=== PATIENT | female | born 1940 | race Caucasian/White ===

== ENCOUNTER → 2016-09-10 | Outpatient (CLI) | payer MEDICARE ==
--- NOTE | 2016-09-10 15:11 | MR ---
MR brain without contrast HISTORY: Memory loss Multiplanar multisequence imaging through the brain No comparisons There is cortical atrophy. Periventricular white matter shows patchy and confluent increased signal o n inversion recovery and T2-weighted sequences. No hemorrhage or hydrocephalus. Cerebellopontine angl es, corpus callosum, pituitary, cervical medullary junction are within normal limits. There are brit l vascular flow voids. The orbits show a symmetric appearance. IMPRESSION: Age-related atrophy and probable chronic small vessel ischemia.
== END | disposition home or self-care (01) ==
LOC: RADMRIMAIN 13:47
PROVIDERS: ATTEND Psychiatry & Neurology Neurology
DX: G31.1 Senile degeneration of brain, not elsewhere classified (principal)
CPT/HCPCS: 70551

== ENCOUNTER → 2020-09-28 | Outpatient (CLI) | payer MEDICARE ==
--- NOTE | 2020-09-28 14:59 | MR ---
EXAMINATION TYPE: MR brain wo con DATE OF EXAM: 09/28/2020 COMPARISON: 09/10/2016 HISTORY: 79-year-old female R41.3 Memory loss, dementia, mild cognitive impairment. F03.91. G31.84 TECHNIQUE: Multiplanar, multisequence images of the brain and brainstem were acquired without IV con trast. Diffusion weighted imaging is performed. FINDINGS: No evidence for acute infarction, hemorrhage, mass, mass effect, midline shift, herniation, effacemen t of basal cisterns, or extra-axial fluid collection. Central cerebral volume loss with mild ventriculomegaly, Edouard's ratio calculated at 0.35 (versus 0.29 , previously). Major intracranial flow voids are intact. T2/FLAIR weighted sequences show increasing right lower matter change, not conflict in the periventri cular and deep white matter regions, moderate to severe burden. Midline structures demonstrate normal morphology. The craniocervical junction is normal. Mild mucosal thickening ethmoid air cells. Globes are intact. IMPRESSION: 1. Moderate generalized atrophy, especially central cerebral atrophy with secondary prominence of the ventricular system. The volume loss has progressed from 2017. 2. Now moderate to severe burden of chronic small vessel ischemic disease, also progressed from 2017. 3. No acute intracranial abnormality seen.
== END | disposition home or self-care (01) ==
LOC: RADMRIMAIN 12:05
PROVIDERS: ATTEND Psychiatry & Neurology Neurology
DX: G31.9 Degenerative disease of nervous system, unspecified (principal); F03.91 Unspecified dementia, unspecified severity, with behavioral disturbance; R41.3 Other amnesia
CPT/HCPCS: 70551

== ENCOUNTER 2020-12-02 17:23 | Inpatient (IN) | payer MEDICARE ==
[2020-12-02] MEDS ORDERED: SODIUM CHLORIDE 0.9% 1,000 ML IV STA (18:06)
--- NOTE | 2020-12-02 18:29 | ED ---
General Adult HPI - General Chief complaint: Weakness Stated complaint: Fall, possible UTI Time Seen by Provider: 12/02/20 17:49 Source: patient, family, RN notes reviewed, old records reviewed Mode of arrival: ambulatory Limitations: no limitations - History of Present Illness Initial comments: Patient is an 80-year-old female with past medical history remarkable for dementia who is brought to emergency department for evaluation after being brought by family. I evaluated the patient when she was placed in a room. At baseline, patient is nonverbal but does follow commands. Family is concerned that she is slower to respond to commands they're concerned for possible infection. She is more tired than normal. Patient also appears to be weaker at home, she is having multiple falls, however she has not fallen and injured herself. She is always caused by her her family member. She is not as freely ambulatory as she normally is. They deny any fevers or cough at home. Denies any urinary complaints. Denies any nausea, vomiting, diarrhea. Denies any sick contacts. Patient was not vaccinated for COVID-19. They brought the patient to the emergency department for evaluation due to altered mental status and concern for infection. - Related Data Home Medications Medication Instructions Recorded Confirmed Ascorbic Acid [Vitamin C] 500 mg PO DAILY 12/02/20 12/02/20 Aspirin EC [Ecotrin Low Dose] 81 mg PO DAILY 12/02/20 12/02/20 Cholecalciferol [Vitamin D3 (25 100 mcg PO DAILY 12/02/20 12/02/20 Mcg = 1000 Iu)] Donepezil [Aricept] 10 mg PO DAILY 12/02/20 12/02/20 Levothyroxine Sodium [Synthroid] 50 mcg PO DAILY 12/02/20 12/02/20 Memantine HCl [Namenda] 5 mg PO BID 12/02/20 12/02/20 Multivit/Folic Acid/Vit K1 1 tab PO DAILY 12/02/20 12/02/20 [One-A-Day Women's 50 Plus Tab] Allergies Allergy/AdvReac Type Severity Reaction Status Date / Time aspirin AdvReac Unknown Verified 12/02/20 20:41 Review of Systems ROS Statement: Those systems with pertinent positive or pertinent negative responses have been documented in the HPI. Difficult to obtain secondary to patient's baseline dementia and nonverbal state. ROS Other: All systems not noted in ROS Statement are negative. Past Medical History Past Medical History: Dementia History of Any Multi-Drug Resistant Organisms: None Reported Additional Past Surgical History / Comment(s): catarac Past Psychological History: No Psychological Hx Reported Smoking Status: Never smoker Past Alcohol Use History: None Reported Past Drug Use History: None Reported General Exam - General Exam Comments Initial Comments: General: Appears in no acute distress. HEAD: Normal with no signs of head trauma. No step-offs or deformity of the skull are palpated her patient. No signs of basilar skull fracture, including negative hemotympanum, churchill sign, raccoon eyes. EYES: PERRLA, EOMI, conjunctiva normal, no discharge. Pupils are 3 mm and equal bilaterally. ENT: Hearing grossly intact, normal oropharynx. RESPIRATORY: Clear breath sounds bilaterally. No wheezes, rales, or rhonchi. C/V: Regular rate and rhythm. S1 and S2 auscultated, no edema, peripheral pulses 2+ and intact throughout ABD: Abdomen is soft, nontender, nondistended. EXT: Patient is normal range of motion of all 4 extremity is without any obvious deformity. No midline spinal tenderness palpation to cervical, thoracic, lumbar spines. Vanessa stable. SKIN: No rashes or lesions observed on exposed skin. NEURO: Alert but not oriented. Patient is nonverbal for the most part at baseline. She is able to follow commands and move all 4 extremities. Cranial nerves II through XII do appear to be intact. Neurological exam is difficult due to her baseline dementia. Limitations: no limitations Course Vital Signs 12/02/20 12/02/20 17:40 19:21 Temperature 99 F Pulse Rate 84 75 Respiratory 18 20 Rate Blood Pressure 127/69 137/74 O2 Sat by Pulse 98 95 Oximetry Medical Decision Making - Medical Decision Making Is in the patient's presentation and physical exam, I'm concerned for acute infectious etiology for her current altered mental status and weakness. I cannot rule out dehydration a cardiac etiology at this time. Patient is also multiple falls. Therefore we will obtain a CT of the head in addition to cardiac workup an infectious workup including urinalysis, troponin, basic labs, EKG, chest x-ray. We will obtain a COVID-19 swab. Family was in agreement this plan. Patient will be given a 1 L fluid bolus in the meantime while she is here in the department. EKG shows no signs of acute ischemia. Patient's laboratory studies are remarkable for an elevated BUN/creatinine which appear to be at her baseline with a history of CK D. Troponin is negative. He checked is consistent with the patient's urinalysis. Patient is COVID-19 positive. Chest x-ray shows no acute cardiopulmonary process. Head CT shows no acute intracranial process but chronic changes. At this time, I discussed the patient's positive COVID-19 result as well as UTI with the patient's family in addition to her normal labs and head imaging. I explained that I would like to admitted to the hospital for fluid hydration as well as IV antibiotics. They were in agreement this plan. As the patient is being admitted for UTI and not Covid 19 pneumonia, I did recommend that we treat the patient with monoclonal antibodies that she is not vaccinated. They consented and patient was treated with monoclonal antibodies and started on IV Rocephin for a UTI. She'll be started on additional fluid bolus. She'll be admitted to the hospital. I spoke with the admitting team [facility] under SINA Palafox who accepted the patient. Patient was therefore admitted under Dr. Verduzco in serious condition. - Lab Data Result diagrams: 12/02/20 18:30 12/02/20 18:30 Lab Results 12/02/20 12/02/20 12/02/20 Range/Units 18:30 18:30 18:30 WBC 5.6 (3.8-10.6) k/uL RBC 4.33 (3.80-5.40) m/uL Hgb 13.5 (11.4-16.0) gm/dL Hct 40.7 (34.0-46.0) % MCV 93.9 (80.0-100.0) fL MCH 31.2 (25.0-35.0) pg MCHC 33.2 (31.0-37.0) g/dL RDW 13.2 (11.5-15.5) % Plt Count 153 (150-450) k/uL MPV 7.7 Neutrophils % Not Reportable Neutrophils % (Manual) 69 % Band Neuts % (Manual) 2 % Lymphocytes % Not Reportable Lymphocytes % (Manual) 26 % Monocytes % Not Reportable Monocytes % (Manual) 2 % Eosinophils % Not Reportable Eosinophils % (Manual) 1 % Basophils % Not Reportable Neutrophils # Not Reportable Neutrophils # (Manual) 3.90 (1.3-7.7) k/uL Lymphocytes # Not Reportable Lymphocytes # (Manual) 1.46 (1.0-4.8) k/uL Monocytes # Not Reportable Monocytes # (Manual) 0.11 (0-1.0) k/uL Eosinophils # Not Reportable Eosinophils # (Manual) 0.06 (0-0.7) k/uL Basophils # Not Reportable Nucleated RBCs 0 (0-0) /100 WBC PT 10.3 (9.0-12.0) sec INR 1.0 (<1.2) APTT 23.6 (22.0-30.0) sec Sodium (137-145) mmol/L Potassium (3.5-5.1) mmol/L Chloride (98-107) mmol/L Carbon Dioxide (22-30) mmol/L Anion Gap mmol/L BUN (7-17) mg/dL Creatinine (0.52-1.04) mg/dL Est GFR (CKD-EPI)AfAm (>60 ml/min/1.73 sqM) Est GFR (CKD-EPI)NonAf (>60 ml/min/1.73 sqM) Glucose (74-99) mg/dL Plasma Lactic Acid [place]ox (0.7-2.0) mmol/L Calcium (8.4-10.2) mg/dL Magnesium (1.6-2.3) mg/dL Total Bilirubin (0.2-1.3) mg/dL AST (14-36) U/L ALT (4-34) U/L Alkaline Phosphatase (38-126) U/L Troponin I (0.000-0.034) ng/mL Total Protein (6.3-8.2) g/dL Albumin (3.5-5.0) g/dL Urine Color Yellow Urine Appearance Turbid H (Clear) Urine pH 5.5 (5.0-8.0) Ur Specific [place] 1.021 (1.001-1.035) Urine Protein 1+ H (Negative) Urine Glucose (UA) Negative (Negative) Urine Ketones Negative (Negative) Urine Blood Negative (Negative) Urine Nitrite Negative (Negative) Urine Bilirubin Negative (Negative) Urine Urobilinogen 2.0 (<2.0) mg/dL Ur Leukocyte Esterase Large H (Negative) Urine RBC 19 H (0-5) /hpf Urine WBC >182 H (0-5) /hpf Urine WBC Clumps Many H (None) /hpf Ur Squamous Epith Cells 9 H (0-4) /hpf Urine Bacteria Many H (None) /hpf Urine Mucus Few H (None) /hpf Urine Yeast (Budding) Moderate H (None) /hpf Influenza Type A (PCR) (Not Detectd) Influenza Type B (PCR) (Not Detectd) RSV (PCR) (Not Detectd) SARS-CoV-2 (PCR) (Not Detectd) 12/02/20 12/02/20 12/02/20 Range/Units 18:30 18:30 18:30 WBC (3.8-10.6) k/uL RBC (3.80-5.40) m/uL Hgb (11.4-16.0) gm/dL Hct (34.0-46.0) % MCV (80.0-100.0) fL MCH (25.0-35.0) pg MCHC (31.0-37.0) g/dL RDW (11.5-15.5) % Plt Count (150-450) k/uL MPV Neutrophils % Neutrophils % (Manual) % Band Neuts % (Manual) % Lymphocytes % Lymphocytes % (Manual) % Monocytes % Monocytes % (Manual) % Eosinophils % Eosinophils % (Manual) % Basophils % Neutrophils # Neutrophils # (Manual) (1.3-7.7) k/uL Lymphocytes # Lymphocytes # (Manual) (1.0-4.8) k/uL Monocytes # Monocytes # (Manual) (0-1.0) k/uL Eosinophils # Eosinophils # (Manual) (0-0.7) k/uL Basophils # Nucleated RBCs (0-0) /100 WBC PT (9.0-12.0) sec INR (<1.2) APTT (22.0-30.0) sec Sodium 136 L (137-145) mmol/L Potassium 3.8 (3.5-5.1) mmol/L Chloride 101 (98-107) mmol/L Carbon Dioxide 26 (22-30) mmol/L Anion Gap 9 mmol/L BUN 25 H (7-17) mg/dL Creatinine 1.25 H (0.52-1.04) mg/dL Est GFR (CKD-EPI)AfAm 47 (>60 ml/min/1.73 sqM) Est GFR (CKD-EPI)NonAf 41 (>60 ml/min/1.73 sqM) Glucose 105 H (74-99) mg/dL Plasma Lactic Acid [place] 1.2 (0.7-2.0) mmol/L Calcium 8.9 (8.4-10.2) mg/dL Magnesium 2.0 (1.6-2.3) mg/dL Total Bilirubin 0.3 (0.2-1.3) mg/dL AST 63 H (14-36) U/L ALT 30 (4-34) U/L Alkaline Phosphatase 87 (38-126) U/L Troponin I <0.012 (0.000-0.034) ng/mL Total Protein 7.5 (6.3-8.2) g/dL Albumin 3.8 (3.5-5.0) g/dL Urine Color Urine Appearance (Clear) Urine pH (5.0-8.0) Ur Specific [place] (1.001-1.035) Urine Protein (Negative) Urine Glucose (UA) (Negative) Urine Ketones (Negative) Urine Blood (Negative) Urine Nitrite (Negative) Urine Bilirubin (Negative) Urine Urobilinogen (<2.0) mg/dL Ur Leukocyte Esterase (Negative) Urine RBC (0-5) /hpf Urine WBC (0-5) /hpf Urine WBC Clumps (None) /hpf Ur Squamous Epith Cells (0-4) /hpf Urine Bacteria (None) /hpf Urine Mucus (None) /hpf Urine Yeast (Budding) (None) /hpf Influenza Type A (PCR) (Not Detectd) Influenza Type B (PCR) (Not Detectd) RSV (PCR) (Not Detectd) SARS-CoV-2 (PCR) (Not Detectd) 12/02/20 Range/Units 18:33 WBC (3.8-10.6) k/uL RBC (3.80-5.40) m/uL Hgb (11.4-16.0) gm/dL Hct (34.0-46.0) % MCV (80.0-100.0) fL MCH (25.0-35.0) pg MCHC (31.0-37.0) g/dL RDW (11.5-15.5) % Plt Count (150-450) k/uL MPV Neutrophils % Neutrophils % (Manual) % Band Neuts % (Manual) % Lymphocytes % Lymphocytes % (Manual) % Monocytes % Monocytes % (Manual) % Eosinophils % Eosinophils % (Manual) % Basophils % Neutrophils # Neutrophils # (Manual) (1.3-7.7) k/uL Lymphocytes # Lymphocytes # (Manual) (1.0-4.8) k/uL Monocytes # Monocytes # (Manual) (0-1.0) k/uL Eosinophils # Eosinophils # (Manual) (0-0.7) k/uL Basophils # Nucleated RBCs (0-0) /100 WBC PT (9.0-12.0) sec INR (<1.2) APTT (22.0-30.0) sec Sodium (137-145) mmol/L Potassium (3.5-5.1) mmol/L Chloride (98-107) mmol/L Carbon Dioxide (22-30) mmol/L Anion Gap mmol/L BUN (7-17) mg/dL Creatinine (0.52-1.04) mg/dL Est GFR (CKD-EPI)AfAm (>60 ml/min/1.73 sqM) Est GFR (CKD-EPI)NonAf (>60 ml/min/1.73 sqM) Glucose (74-99) mg/dL Plasma Lactic Acid [place] (0.7-2.0) mmol/L Calcium (8.4-10.2) mg/dL Magnesium (1.6-2.3) mg/dL Total Bilirubin (0.2-1.3) mg/dL AST (14-36) U/L ALT (4-34) U/L Alkaline Phosphatase (38-126) U/L Troponin I (0.000-0.034) ng/mL Total Protein (6.3-8.2) g/dL Albumin (3.5-5.0) g/dL Urine Color Urine Appearance (Clear) Urine pH (5.0-8.0) Ur Specific [place] (1.001-1.035) Urine Protein (Negative) Urine Glucose (UA) (Negative) Urine Ketones (Negative) Urine Blood (Negative) Urine Nitrite (Negative) Urine Bilirubin (Negative) Urine Urobilinogen (<2.0) mg/dL Ur Leukocyte Esterase (Negative) Urine RBC (0-5) /hpf Urine WBC (0-5) /hpf Urine WBC Clumps (None) /hpf Ur Squamous Epith Cells (0-4) /hpf Urine Bacteria (None) /hpf Urine Mucus (None) /hpf Urine Yeast (Budding) (None) /hpf Influenza Type A (PCR) Not Detected (Not Detectd) Influenza Type B (PCR) Not Detected (Not Detectd) RSV (PCR) Not Detected (Not Detectd) SARS-CoV-2 (PCR) Detected A (Not Detectd) - EKG Data -: EKG Interpreted by Me EKG Comments: 12-lead Electrocardiogram Interpretation Note EKG was reviewed and interpreted by myself. 12-lead ECG performed at 1806 is interpreted by me as revealing normal sinus rhythm at a rate of 80 beats per minute. Metaline is normal. VA interval is 144 ms, QRS duration is 76 ms, QTc is 410 ms.. There were no ST or T wave abnormalities to suggest myocardial ischemia or injury. R wave progression across the precordium was satisfactory. By my interpretation this EKG is non-diagnostic for acute ischemia. Disposition Clinical Impression: COVID-19, UTI (urinary tract infection), Dehydration, Altered mental status, CKD (chronic kidney disease) Disposition: ADMITTED IP TO THIS HOSP Condition: Serious
[2020-12-02 18:33] LABS: HCT 40.7 % (34.0-46.0); HGB 13.5 gm/dL (11.4-16.0); MCH 31.2 pg (25.0-35.0); MCHC 33.2 g/dL (31.0-37.0); MCV 93.9 fL (80.0-100.0); Mean Platelet Volume 7.7; Platelet Count 153 k/uL (150-450); RBC 4.33 m/uL (3.80-5.40); RDW 13.2 % (11.5-15.5); WBC 5.6 k/uL (3.8-10.6)
[2020-12-02 18:43] LABS: Appearance,Urine Turbid (Clear); Bacteria,Urine Many /hpf; Bilirubin,Urine Negative (Negative); Blood,Urine Negative (Negative); Budding Yeast,Urine Moderate /hpf; Color,Urine Yellow; Glucose,Urine (UA) Negative (Negative); Ketones,Urine Negative (Negative); Leukocyte Esterase,Urine Large (Negative); Mucus,Urine Few /hpf; Nitrite,Urine Negative (Negative); PH, Urine 5.5 (5.0-8.0); Partial Thromboplastin Time 23.6 sec (22.0-30.0); Protein,Urine 1+ (Negative); Prothrombin Time 10.3 sec (9.0-12.0); RBC,Urine 19 /hpf (0-5); Specific Gravity,Urine 1.021 (1.001-1.035); Squamous Epithelial Cell,Urine 9 /hpf (0-4); WBC,Urine >182 /hpf (0-5)
[2020-12-02 18:50] LABS: Albumin 3.8 g/dL (3.5-5.0); Calcium 8.9 mg/dL (8.4-10.2); Potassium 3.8 mmol/L (3.5-5.1); Total Bilirubin 0.3 mg/dL (0.2-1.3); Total Protein 7.5 g/dL (6.3-8.2)
[2020-12-02 18:53] LABS: Band Neutrophils % 2 %; Eosinophils # (M) 0.06 k/uL (0-0.7); Lymphocytes # (M) 1.46 k/uL (1.0-4.8); Monocytes # (M) 0.11 k/uL (0-1.0); Neutrophils % (M) 69 %; Nucleated Red Blood Cells 0 /100 WBC (0-0); Total Cells Counted 100
--- NOTE | 2020-12-02 19:38 | CT ---
EXAMINATION TYPE: CT brain wo con DATE OF EXAM: 12/02/2020 COMPARISON: MRI brain 09/28/2020 HISTORY: weakness, ams CT DLP: 1076.4 mGycm Automated exposure control for dose reduction was used. FINDINGS: Moderate generalized degenerative change with low attenuation in the white matter. Intracranial ather osclerotic changes are noted. Changes of chronic sinusitis. Orbits symmetric. No midline shift or mas s effect. Craniocervical junction maintained. IMPRESSION: DEGENERATIVE AND NONSPECIFIC WHITE MATTER CHANGES MOST TYPICAL OF REMOTE ISCHEMIA. NO ACUTE HEMORRHAG E OR MASS EFFECT.
--- NOTE | 2020-12-02 20:33 | XR ---
EXAMINATION TYPE: XR chest 2V DATE OF EXAM: 12/02/2020 COMPARISON: NONE TECHNIQUE: PA and lateral views submitted. HISTORY: Weakness FINDINGS: The lungs are clear and there is no pneumothorax, pleural effusion, or focal pneumonia. Heart size normal. Diffuse osteopenia. Prominence of the hilum likely reflects slight patient rotation. Hypertro phic and degenerative change of the spine. IMPRESSION: 1. No acute process. Hilar prominence likely related to positioning short-term follow-up PA and later al views the chest recommended to confirm.
[2020-12-02] MEDS ORDERED: SODIUM CHLORIDE 0.9% 50 ML IVPB ONE (21:00)
[2020-12-02] MEDS ORDERED: NALOXONE 0.4 MG/ML 1 ML VIAL IV PRN (21:08)
[2020-12-02] MEDS ORDERED: CASIRIVIMAB (REGN10933) (EUA) 600 MG, IMDEVIMAB (REGN10987) (EUA) 600 MG in SODIUM CHLO... IVPB ONE (21:15)
[2020-12-02] MEDS ORDERED: IBUPROFEN 400 MG TAB PO PRN (21:16)
[2020-12-02] MEDS: SODIUM CHLORIDE 0.9% 1,000 ML IV SCH (21:25)
[2020-12-02] MEDS: ACETAMINOPHEN TAB 325 MG TAB PO PRN (23:14)
[2020-12-03] MEDS: LEVOTHYROXINE 50 MCG TAB PO SCH (06:13)
[2020-12-03] MEDS ORDERED: FAMOTIDINE 20 MG TAB PO SCH (09:00)
[2020-12-03] MEDS: ZINC SULFATE 220 MG CAP PO SCH (09:40)
[2020-12-03] MEDS: CHOLECALCIFEROL 25 MCG (1000 IU) TABLET PO SCH (09:40)
[2020-12-03] MEDS: ASCORBIC ACID 500 MG TAB PO SCH (09:40)
[2020-12-03] MEDS: ENOXAPARIN 30 MG/0.3 ML SYRINGE SQ SCH (09:40)
[2020-12-03] MEDS: MEMANTINE 5 MG TAB PO SCH ×2 (09:40→20:22)
[2020-12-03] MEDS: DONEPEZIL 10 MG TAB PO SCH (09:40)
[2020-12-03] MEDS: ASPIRIN 81 MG PO SCH (09:43)
[2020-12-03 11:59] LABS: Glucose,Whole Blood 97 mg/dL (75-99)
--- NOTE | 2020-12-03 12:21 | P.HPIM ---
History of Present Illness This is a pleasant 80 years old female with past medical history of dementia. Patient comes from home with taking care of her. Is very poor historian. Patient cannot provide information, she does not follow verbal commands. One time she followed gesture command by raising her hand. However she is awake and keep looking at me. Does not look in distress. Examination looks benign. I talked to her Mr. Pace he says that she is not talking for the last 3 years, she was not talking for more than a year, she does not ask to be fed, she does not ask to be cleaned if she soils or wet herself and he help her with all her daily activity, he has hard time taking care of her and he will consider usp placement. but he brought her to the hospital because she is becoming more sleepy lately I discussed with him her case of advanced versus end-stage dementia with recommendation for palliative consult as out-patient and he agrees On admission she has a fever of 101.9. She is saturating 95% on room air to 2 liters per minute CBC is unremarkable, no leukopenia. No lymphopenia. INR is 1.0. Creatinine elevated 1.25 which looks at baseline of 1.1-1.5 Rest of BMP and liver enzymes and troponin were unremarkable. Urine analysis is suspicious for infection. EKG showing normal sinus rhythm at [address]-T changes. Chest x-ray: No acute process. CT of the brain: Degenerative and nonspecific white matter changes most typical of remote ischemia. No acute hemorrhage or mass effect In the emergency room she received IV fluid and ceftriaxone Review of Systems CONSTITUTIONAL: No fever, no malaise, no fatigue. HEENT: No recent visual problems or hearing problems. Denied any sore throat. CARDIOVASCULAR: No orthopnea, PND, no palpitations, no syncope. PULMONARY: No chest wall tenderness, no hemoptysis. GASTROINTESTINAL: No diarrhea, no nausea, no vomiting, no abdominal pain. Normoactive bowel sounds. NEUROLOGICAL: No headaches, no weakness, no numbness. HEMATOLOGICAL: Denies any bleeding or petechiae. GENITOURINARY: Denies any burning micturition, frequency, or urgency. MUSCULOSKELETAL/RHEUMATOLOGICAL: Denies any joint pain, swelling, or any muscle pain. ENDOCRINE: Denies any polyuria or polydipsia. Past Medical History Past Medical History: Dementia History of Any Multi-Drug Resistant Organisms: None Reported Additional Past Surgical History / Comment(s): catarac Past Anesthesia/Blood Transfusion Reactions: Unable to Obtain Additional Past Anesthesia/Blood Transfusion Reaction / Comment(s): Never has recieved blood or blood products Past Psychological History: No Psychological Hx Reported Smoking Status: Never smoker Past Alcohol Use History: None Reported Past Drug Use History: None Reported Medications and Allergies Home Medications Medication Instructions Recorded Confirmed Type Ascorbic Acid [Vitamin C] 500 mg PO DAILY 12/02/20 12/02/20 History Aspirin EC [Ecotrin Low Dose] 81 mg PO DAILY 12/02/20 12/02/20 History Cholecalciferol [Vitamin D3 (25 100 mcg PO DAILY 12/02/20 12/02/20 History Mcg = 1000 Iu)] Donepezil [Aricept] 10 mg PO DAILY 12/02/20 12/02/20 History Levothyroxine Sodium [Synthroid] 50 mcg PO DAILY 12/02/20 12/02/20 History Memantine HCl [Namenda] 5 mg PO BID 12/02/20 12/02/20 History Multivit/Folic Acid/Vit K1 1 tab PO DAILY 12/02/20 12/02/20 History [One-A-Day Women's 50 Plus Tab] Allergies Allergy/AdvReac Type Severity Reaction Status Date / Time aspirin AdvReac Unknown Verified 12/02/20 20:41 Physical Exam Vitals: Vital Signs Temp Pulse Pulse Resp BP BP Pulse Ox 12/03/20 04:00 98.9 F 77 17 141/68 99 12/03/20 02:00 85 24 12/02/20 23:30 82 24 127/73 93 L 12/02/20 22:50 101.9 F H 12/02/20 22:30 79 24 127/70 95 12/02/20 22:25 100.4 F H 85 18 116/57 95 12/02/20 19:21 75 20 137/74 95 12/02/20 17:40 99 F 84 18 127/69 98 Intake and Output 12/02/20 12/03/20 12/03/20 22:59 06:59 14:59 Intake Total 360 Output Total 600 Balance -240 Intake: Intake, IV Titration 360 Amount Sodium Chloride 0.9% 1, 360 000 ml @ 70 mls/hr IV . [id number] [facility] Rx#:[id number] Output: Urine 600 Other: Voiding Method Diaper Incontinent # Voids 2 Weight 56.699 kg 66 kg GENERAL: The patient is alert and oriented x3, not in any acute distress. Well developed, well nourished. HEENT: Pupils are round and equally reacting to light. EOMI. No scleral icterus. No conjunctival pallor. Normocephalic, atraumatic. No pharyngeal erythema. No thyromegaly. CARDIOVASCULAR: S1 and S2 present. No murmurs, rubs, or gallops. -PULMONARY: Chest is clear to auscultation, no wheezing . Bilateral crepitation. Mild tachypnea ABDOMEN: Soft, nontender, nondistended, normoactive bowel sounds. No palpable organomegaly. MUSCULOSKELETAL: No joint swelling or deformity. EXTREMITIES: No cyanosis, clubbing, or pedal edema. NEUROLOGICAL: Gross neurological examination did not reveal any focal deficits. SKIN: No rashes. No petechiae Results CBC & Chem 7: 12/02/20 18:30 12/02/20 18:30 Labs: Abnormal Lab Results - Last 24 Hours (Table) 12/02/20 12/02/20 12/02/20 Range/Units 18:30 18:30 18:33 Sodium 136 L (137-145) mmol/L BUN 25 H (7-17) mg/dL Creatinine 1.25 H (0.52-1.04) mg/dL Glucose 105 H (74-99) mg/dL AST 63 H (14-36) U/L Urine Appearance Turbid H (Clear) Urine Protein 1+ H (Negative) Ur Leukocyte Esterase Large H (Negative) Urine RBC 19 H (0-5) /hpf Urine WBC >182 H (0-5) /hpf Urine WBC Clumps Many H (None) /hpf Ur Squamous Epith Cells 9 H (0-4) /hpf Urine Bacteria Many H (None) /hpf Urine Mucus Few H (None) /hpf Urine Yeast (Budding) Moderate H (None) /hpf SARS-CoV-2 (PCR) Detected A (Not Detectd) Microbiology - Last 24 Hours (Table) 12/02/20 18:30 Urine Culture - Preliminary Urine,Clean Catch Thrombosis Risk Factor Assmnt - Choose All That Apply Any of the Below Risk Factors Present?: Yes Each Factor Represents 1 point: Medical pt on bed rest Other Risk Factors: Yes Each Risk Factor Represents 3 Points: Age 75 years or older Other congenital or acquired thrombophilia - If yes, enter type in comment: No Thrombosis Risk Factor Assessment Total Risk Factor Score: 4 Thrombosis Risk Factor Assessment Level: Moderate Risk Assessment and Plan Assessment: Acute urinary tract infection Altered mental status, most likely metabolic encephalopathy. 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 Continue same treatment. Continue with symptomatic treatment. Resume home medication. Monitor lytes and vitals. DVT and GI prophylaxis. Further recommendationsas per clinical course of the patient DVT prophylaxis: Subcutaneous heparin GI Prophylaxis: Pepcid Prognosis is guarded
[2020-12-03] MEDS: SODIUM CHLORIDE 0.9% 1,000 ML IV SCH ×2 (16:57→20:22)
[2020-12-03] MEDS: ACETAMINOPHEN TAB 325 MG TAB PO PRN (18:24)
--- NOTE | 2020-12-03 23:08 | P.CONS ---
History of Present Illness - Reason for Consult Consult date: 12/03/20 covid and UTI Requesting physician: Elan E Sheet - Chief Complaint weakness and less responsive x 1 day - History of Present Illness History of present illness : Patient is 80-year-old female with a past medical history difficult for dementia was brought into the ER for evaluation by the family with concern for the patient slow to respond and their concern for possible infection patient bending was noticed to be more tired than normal and weaker at home no clear history of any fever or cough at home no vomiting or any diarrhea patient on presentation to the hospital did have a fever of 100.4 F subsequent spike a fever of 101.9 F patient was initially not hypoxic subsequently become hypoxic requiring supplemental oxygen patient did have a normal white count with no lymphopenia creatinine was mildly elevated patient did have significantly positive UA Covid test came back positive patient did have a chest x-ray no acute process and a prominent slightly which was initially short-term follow-up patient was admitted to the hospital he was started on Rocephin 2 g daily initiated Lovenox zinc Infectious disease was consulted for further management of antibiotic therapy most information has been obtained from review the chart talking nursing staff with the patient currently nonverbal and is unable to provide any history Review of system: Positive point has been mentioned in HPI complete review could not be obtained because of underlying mental status Past medical history : Reviewed, documented below Past surgical history : Reviewed, documented below Social history: Reviewed, documented below Medications: Reviewed, as documented below EXAMINATION: Vital sigans= Reviewed and documented below GENERAL DESCRIPTION: Elderly female lying in bed, no distress. No tachypnea or accessory muscle of respiration use. HEENT: Shows Pallor , no scleral icterus. Oral mucous membrane is dry. NECK: Trachea central, no thyromegaly. LUNGS: Unlabored breathing. Decreased breath sound at the base. No wheeze or crackle. HEART: S1, S2, regular rate and rhythm. ABDOMEN: Soft, no tenderness , guarding or rigidity EXTREMITIES: No edema of feet. SKIN: No rash, no masses palpable. NEUROLOGICAL: The patient is awake, nonverbal orientation could not determine LABS AND RADIOLOGY: Reviewed results see below Assessment : 1-patient presented to hospital with weakness and lethargy in this patient who did have a fever significantly positive UA with likely concern for asymptomatic urinary tract infection however the patient did have a positive Covid test however the patient was noticed to me not hypoxic and did not have any lymphopenia and sepsis with reported negative possible mild Covid illness and UTI to be the main reason for her symptoms Plan: 1-Rocephin 2 g daily to continue 2-we will repeat her chest x-ray inflammatory markers in the a.m. if any worsening for the treatment of any hypoxemia may consider remdesivir 3-patient to continue with the Lovenox zinc and ascorbic acid 4-droplet isolation We will follow on clinical condition and cultures to further adjust medication if needed Thank you for this consultation we will follow the patient along with you Past Medical History Past Medical History: Dementia History of Any Multi-Drug Resistant Organisms: None Reported Additional Past Surgical History / Comment(s): catarac Past Anesthesia/Blood Transfusion Reactions: Unable to Obtain Additional Past Anesthesia/Blood Transfusion Reaction / Comm: Never has recieved blood or blood products Past Psychological History: No Psychological Hx Reported Smoking Status: Never smoker Past Alcohol Use History: None Reported Past Drug Use History: None Reported Medications and Allergies Home Medications Medication Instructions Recorded Confirmed Type Ascorbic Acid [Vitamin C] 500 mg PO DAILY 12/02/20 12/02/20 History Aspirin EC [Ecotrin Low Dose] 81 mg PO DAILY 12/02/20 12/02/20 History Cholecalciferol [Vitamin D3 (25 100 mcg PO DAILY 12/02/20 12/02/20 History Mcg = 1000 Iu)] Donepezil [Aricept] 10 mg PO DAILY 12/02/20 12/02/20 History Levothyroxine Sodium [Synthroid] 50 mcg PO DAILY 12/02/20 12/02/20 History Memantine HCl [Namenda] 5 mg PO BID 12/02/20 12/02/20 History Multivit/Folic Acid/Vit K1 1 tab PO DAILY 12/02/20 12/02/20 History [One-A-Day Women's 50 Plus Tab] Allergies Allergy/AdvReac Type Severity Reaction Status Date / Time aspirin AdvReac Unknown Verified 12/02/20 20:41 Physical Exam Vitals: Vital Signs Temp Pulse Pulse Resp BP BP Pulse Ox 12/03/20 04:00 98.9 F 77 17 141/68 99 12/03/20 02:00 85 24 12/02/20 23:30 82 24 127/73 93 L 12/02/20 22:50 101.9 F H 12/02/20 22:30 79 24 127/70 95 12/02/20 22:25 100.4 F H 85 18 116/57 95 12/02/20 19:21 75 20 137/74 95 12/02/20 17:40 99 F 84 18 127/69 98 Intake and Output 12/02/20 12/03/20 12/03/20 22:59 06:59 14:59 Intake Total 360 118 Output Total 600 Balance -240 118 Intake: Intake, IV Titration 360 Amount Sodium Chloride 0.9% 1, 360 000 ml @ 70 mls/hr IV . [id number] [facility] Rx#:[id number] Oral 118 Output: Urine 600 Other: Voiding Method Diaper Incontinent # Voids 2 Weight 56.699 kg 66 kg Results CBC & Chem 7: 12/02/20 18:30 12/02/20 18:30 Labs: Abnormal Lab Results - Last 24 Hours (Table) 12/02/20 12/02/20 12/02/20 Range/Units 18:30 18:30 18:33 Sodium 136 L (137-145) mmol/L BUN 25 H (7-17) mg/dL Creatinine 1.25 H (0.52-1.04) mg/dL Glucose 105 H (74-99) mg/dL AST 63 H (14-36) U/L Urine Appearance Turbid H (Clear) Urine Protein 1+ H (Negative) Ur Leukocyte Esterase Large H (Negative) Urine RBC 19 H (0-5) /hpf Urine WBC >182 H (0-5) /hpf Urine WBC Clumps Many H (None) /hpf Ur Squamous Epith Cells 9 H (0-4) /hpf Urine Bacteria Many H (None) /hpf Urine Mucus Few H (None) /hpf Urine Yeast (Budding) Moderate H (None) /hpf SARS-CoV-2 (PCR) Detected A (Not Detectd) Microbiology - Last 24 Hours (Table) 12/02/20 18:30 Urine Culture - Preliminary Urine,Clean Catch
[2020-12-04] MEDS: LEVOTHYROXINE 50 MCG TAB PO SCH (06:09)
[2020-12-04 07:17] LABS: HCT 38.6 % (34.0-46.0); HGB 12.5 gm/dL (11.4-16.0); MCH 31.1 pg (25.0-35.0); MCHC 32.4 g/dL (31.0-37.0); MCV 95.8 fL (80.0-100.0); Mean Platelet Volume 7.8; Platelet Count 137 k/uL (150-450); RBC 4.03 m/uL (3.80-5.40); RDW 13.2 % (11.5-15.5)
[2020-12-04 07:32] LABS: Albumin 2.9 g/dL (3.5-5.0); Calcium 8.2 mg/dL (8.4-10.2); Potassium 4.3 mmol/L (3.5-5.1); Total Bilirubin 0.4 mg/dL (0.2-1.3); Total Protein 6.1 g/dL (6.3-8.2)
--- NOTE | 2020-12-04 08:17 | XR ---
EXAMINATION TYPE: XR chest 1V portable DATE OF EXAM: 12/04/2020 Comparison: 12/02/2020 Clinical History: 80 year-old female pneumonia Findings: The cardiomediastinal silhouette, aorta, and pulmonary vasculature are within normal limits. There i s developing patchy opacity at the left base. No pleural effusion. Impression: Possible developing pneumonia at the left base.
[2020-12-04 08:57] LABS: Band Neutrophils % 3 %; Lymphocytes # (M) 1.08 k/uL (1.0-4.8); Monocytes # (M) 0.12 k/uL (0-1.0); Neutrophils % (M) 67 %; Nucleated Red Blood Cells 0 /100 WBC (0-0); Total Cells Counted 100
[2020-12-04] MEDS: ENOXAPARIN 30 MG/0.3 ML SYRINGE SQ SCH (09:49)
[2020-12-04] MEDS: MEMANTINE 5 MG TAB PO SCH ×2 (09:49→19:57)
[2020-12-04] MEDS: ZINC SULFATE 220 MG CAP PO SCH (09:49)
[2020-12-04] MEDS: ASCORBIC ACID 500 MG TAB PO SCH (09:49)
[2020-12-04] MEDS: ASPIRIN 81 MG PO SCH (09:49)
[2020-12-04] MEDS: FAMOTIDINE 20 MG TAB PO SCH (09:49)
[2020-12-04] MEDS: DONEPEZIL 10 MG TAB PO SCH (09:49)
[2020-12-04] MEDS: CHOLECALCIFEROL 25 MCG (1000 IU) TABLET PO SCH (09:49)
--- NOTE | 2020-12-04 12:44 | P.PN ---
Subjective This is a pleasant 80 years old female with past medical history of dementia. Patient comes from home with taking care of her. Is very poor historian. Patient cannot provide information, she does not follow verbal commands. One time she followed gesture command by raising her hand. However she is awake and keep looking at me. Does not look in distress. Examination looks benign. I talked to her Mr. Pace he says that she is not talking for the last 3 years, she was not talking for more than a year, she does not ask to be fed, she does not ask to be cleaned if she soils or wet herself and he help her with all her daily activity, he has hard time taking care of her and he will consider [facility] placement. but he brought her to the hospital because she is becoming more sleepy lately I discussed with him her case of advanced versus end-stage dementia with recommendation for palliative consult as out-patient and he agrees On admission she has a fever of 101.9. She is saturating 95% on room air to 2 liters per minute CBC is unremarkable, no leukopenia. No lymphopenia. INR is 1.0. Creatinine elevated 1.25 which looks at baseline of 1.1-1.5 Rest of BMP and liver enzymes and troponin were unremarkable. Urine analysis is suspicious for infection. EKG showing normal sinus rhythm at [address]-T changes. Chest x-ray: No acute process. CT of the brain: Degenerative and nonspecific white matter changes most typical of remote ischemia. No acute hemorrhage or mass effect In the emergency room she received IV fluid and ceftriaxone 12/04/2020 Patient is up in bed staring with no distress, patient nonverbal, does not follow command but has good dilatation is pending. Vitals are stable. Urine culture is growing gram-negative bacilli final culture still pending. Patient remains on ceftriaxone 2 g. Most likely patient symptoms secondary to UTI. However repeat chest x-ray from today showing development left lower lobe pneumonia however patient is not tachypneic, not dyspneic and not hypoxic. Also she has persistent Covid test. Continue gentle hydration. Review of systems: N/a Objective - Vital Signs Vital signs: Vital Signs Temp 98.1 F 12/04/20 07:00 Pulse 62 12/04/20 07:00 Resp 18 12/04/20 08:00 BP 120/59 12/04/20 07:00 Pulse Ox 97 12/04/20 07:00 Intake & Output 12/03/20 12/04/20 12/04/20 18:59 06:59 18:59 Intake Total 118 700 120 Output Total 60 Balance 118 640 120 Weight 68 kg Intake: Intake, IV Titration 700 Amount Sodium Chloride 0.9% 1, 700 000 ml @ 70 mls/hr IV . [id number] [facility] Rx#:[id number] Oral 118 120 Output: Urine 60 Other: Voiding Method Diaper Diaper Diaper Incontinent Incontinent Incontinent External Catheter External Catheter # Voids 1 1 - Exam -GENERAL: The patient is awake, does not follow command, nonverbal x3, which looks this is her baseline not in any acute distress. Well developed, well nourished. HEENT: Pupils are round and equally reacting to light. EOMI. No scleral icterus. No conjunctival pallor. Normocephalic, atraumatic. No pharyngeal erythema. No thyromegaly. CARDIOVASCULAR: S1 and S2 present. No murmurs, rubs, or gallops. -PULMONARY: Chest is clear to auscultation, no wheezing . Bilateral crepitation. Mild tachypnea ABDOMEN: Soft, nontender, nondistended, normoactive bowel sounds. No palpable organomegaly. MUSCULOSKELETAL: No joint swelling or deformity. EXTREMITIES: No cyanosis, clubbing, or pedal edema. NEUROLOGICAL: Gross neurological examination did not reveal any focal deficits. SKIN: No rashes. No petechiae - Labs CBC & Chem 7: 12/04/20 06:32 12/04/20 06:32 Labs: Abnormal Lab Results - Last 24 Hours (Table) 12/04/20 12/04/20 12/04/20 Range/Units 06:32 06:32 06:32 Plt Count 137 L (150-450) k/uL D-Dimer 0.79 H (<0.60) mg/L FEU Calcium 8.2 L (8.4-10.2) mg/dL AST 50 H (14-36) U/L Lactate Dehydrogenase 672 H (313-618) U/L C-Reactive Protein 5.0 H (<1.0) mg/dL Total Protein 6.1 L (6.3-8.2) g/dL Albumin 2.9 L (3.5-5.0) g/dL Microbiology - Last 24 Hours (Table) 12/02/20 18:30 Urine Culture - Preliminary Urine,Clean Catch Gram Neg Bacilli Assessment and Plan Assessment: Acute urinary tract infection Altered mental status, most likely metabolic encephalopathy. 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 Continue same treatment. Continue with symptomatic treatment. Resume home medication. Monitor lytes and vitals. DVT and GI prophylaxis. Further recommendationsas per clinical course of the patient DVT prophylaxis: Subcutaneous heparin GI Prophylaxis: Pepcid Prognosis is guarded
--- NOTE | 2020-12-04 18:02 | PN ---
PROGRESS NOTE DATE OF SERVICE: 12/04/2020 REASON FOR FOLLOWUP: Urinary tract infection, positive COVID test. INTERVAL HISTORY: The patient is afebrile. The patient is currently breathing comfortably. The patient did have the O2 applied. She is saturating 99%. Per the nursing staff, the patient remains nonverbal, unable to provide any history. No vomiting, diarrhea or any other changes reported. PHYSICAL EXAMINATION: Blood pressure 120/59, pulse of 62, temperature 98.1. She is 97% on 2 L nasal cannula. General description is an elderly female lying in bed in no distress. RESPIRATORY SYSTEM: Unlabored breathing. Decreased intensity of breath sounds. HEART: S1, S2. Regular rate and rhythm. ABDOMEN: Soft. No tenderness. LABS: Hemoglobin is , white count 4.0. 0.79, creatinine 1.01. CRP is 5.0. LDH 672. DIAGNOSTIC IMPRESSION AND PLAN: 1. Patient with a fever concerning likely for a symptomatic urinary tract infection. Patient is covered with Rocephin; to continue while waiting for the culture to finalize. 2. Patient with COVID-19 pneumonia, more likely mild illness. RN has been advised to take the oxygen off and see what her saturations are. If any hypoxemia otherwise continue with the Lovenox, zinc, ascorbic acid and respiratory support and monitor clinical course closely. MMODL / IJN: [id number] /
[2020-12-05] MEDS: LEVOTHYROXINE 50 MCG TAB PO SCH (05:29)
[2020-12-05] MEDS: CHOLECALCIFEROL 25 MCG (1000 IU) TABLET PO SCH (08:29)
[2020-12-05] MEDS: ZINC SULFATE 220 MG CAP PO SCH (08:29)
[2020-12-05] MEDS: DONEPEZIL 10 MG TAB PO SCH (08:29)
[2020-12-05] MEDS: ENOXAPARIN 30 MG/0.3 ML SYRINGE SQ SCH (08:29)
[2020-12-05] MEDS: ASCORBIC ACID 500 MG TAB PO SCH (08:29)
[2020-12-05] MEDS: ASPIRIN 81 MG PO SCH (08:29)
[2020-12-05] MEDS: FAMOTIDINE 20 MG TAB PO SCH (08:30)
[2020-12-05] MEDS: MEMANTINE 5 MG TAB PO SCH ×2 (08:30→19:45)
[2020-12-05] MEDS: SODIUM CHLORIDE 0.9% 1,000 ML IV SCH ×3 (09:51→23:10)
--- NOTE | 2020-12-05 13:03 | P.PN ---
Subjective This is a pleasant 80 years old female with past medical history of dementia. Patient comes from home with taking care of her. Is very poor historian. Patient cannot provide information, she does not follow verbal commands. One time she followed gesture command by raising her hand. However she is awake and keep looking at me. Does not look in distress. Examination looks benign. I talked to her Mr. Pace he says that she is not talking for the last 3 years, she was not talking for more than a year, she does not ask to be fed, she does not ask to be cleaned if she soils or wet herself and he help her with all her daily activity, he has hard time taking care of her and he will consider snf placement. but he brought her to the hospital because she is becoming more sleepy lately I discussed with him her case of advanced versus end-stage dementia with recommendation for palliative consult as out-patient and he agrees On admission she has a fever of 101.9. She is saturating 95% on room air to 2 liters per minute CBC is unremarkable, no leukopenia. No lymphopenia. INR is 1.0. Creatinine elevated 1.25 which looks at baseline of 1.1-1.5 Rest of BMP and liver enzymes and troponin were unremarkable. Urine analysis is suspicious for infection. EKG showing normal sinus rhythm at [address]-T changes. Chest x-ray: No acute process. CT of the brain: Degenerative and nonspecific white matter changes most typical of remote ischemia. No acute hemorrhage or mass effect In the emergency room she received IV fluid and ceftriaxone 12/04/2020 Patient is up in bed staring with no distress, patient nonverbal, does not follow command but has good dilatation is pending. Vitals are stable. Urine culture is growing gram-negative bacilli final culture still pending. Patient remains on ceftriaxone 2 g. Most likely patient symptoms secondary to UTI. However repeat chest x-ray from today showing development left lower lobe pneumonia however patient is not tachypneic, not dyspneic and not hypoxic. Also she has persistent Covid test. Continue gentle hydration. Review of systems: N/a 12/05/2020 Patient is awake, but nonverbal at baseline. Clinically looks stable. Vitals stable. Urine culture is growing gram-negative bacilli or fever. Continue with ceftriaxone. Agree with ID assessment patient has mild Covid. She is saturating 94% on room air and she has no respiratory symptoms possible need placement upon discharge per my discussion with her . youth accommodation support worker consulted Objective - Vital Signs Vital signs: Vital Signs Temp 98.7 F 12/05/20 12:00 Pulse 67 12/05/20 12:00 Resp 15 12/05/20 12:00 BP 149/77 12/05/20 12:00 Pulse Ox 94 L 12/05/20 12:00 Intake & Output 12/04/20 12/05/20 12/05/20 18:59 06:59 18:59 Intake Total 360 750 140 Output Total 520 Balance 360 230 140 Weight 69.5 kg Intake: Intake, IV Titration 700 Amount Sodium Chloride 0.9% 1, 700 000 ml @ 70 mls/hr IV . [id number] [facility] Rx#:[id number] Oral 360 50 140 Output: Urine 520 Other: Voiding Method Diaper Diaper External Catheter Incontinent Incontinent External Catheter External Catheter # Bowel Movements 1 2 - Exam -GENERAL: The patient is awake, does not follow command, nonverbal x3, which looks this is her baseline not in any acute distress. Well developed, well nourished. HEENT: Pupils are round and equally reacting to light. EOMI. No scleral icterus. No conjunctival pallor. Normocephalic, atraumatic. No pharyngeal erythema. No thyromegaly. CARDIOVASCULAR: S1 and S2 present. No murmurs, rubs, or gallops. -PULMONARY: Chest is clear to auscultation, no wheezing . Bilateral crepitation. Mild tachypnea ABDOMEN: Soft, nontender, nondistended, normoactive bowel sounds. No palpable organomegaly. MUSCULOSKELETAL: No joint swelling or deformity. EXTREMITIES: No cyanosis, clubbing, or pedal edema. NEUROLOGICAL: Gross neurological examination did not reveal any focal deficits. SKIN: No rashes. No petechiae - Labs CBC & Chem 7: 12/04/20 06:32 12/04/20 06:32 Labs: Abnormal Lab Results - Last 24 Hours (Table) 12/04/20 Range/Units 06:32 Procalcitonin 0.21 H (0.02-0.09) ng/mL Assessment and Plan Assessment: Acute urinary tract infection Altered mental status, most likely metabolic encephalopathy. 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 Continue same treatment. Continue with symptomatic treatment. Resume home medication. Monitor lytes and vitals. DVT and GI prophylaxis. Further recommendationsas per clinical course of the patient DVT prophylaxis: Subcutaneous heparin GI Prophylaxis: Pepcid Prognosis is guarded
--- NOTE | 2020-12-05 21:35 | PN ---
PROGRESS NOTE DATE OF SERVICE: 12/05/2020 REASON FOR FOLLOWUP: 1. Urinary tract infection. 2. COVID-19 infection. INTERVAL HISTORY: The patient is afebrile. The patient is currently breathing comfortably on room air, saturating about 95% on room air. The patient remains nonverbal. He is unable to provide any history. No vomiting, diarrhea or any other changes reported by nursing staff. PHYSICAL EXAMINATION: Blood pressure 170/81 with a pulse of 74, temperature 98.6. He is 94% on room air. General description is an elderly female lying in bed in no distress. RESPIRATORY SYSTEM: Unlabored breathing. Decreased breath sounds at the bases. No wheeze. HEART: S1, S2. Regular rate and rhythm. ABDOMEN: Soft. No tenderness. LABS: No new labs have been obtained today. DIAGNOSTIC IMPRESSION AND PLAN: 1. Patient with an Escherichia coli urinary tract infection, covered with Rocephin. Transition to oral Ceftin on discharge. 2. Patient with a positive COVID test in this patient, more likely mild illness. Patient is not hypoxic. Continue Lovenox, zinc, ascorbic acid and respiratory support. MMODL / IJN: [id number] /
[2020-12-06] MEDS: LEVOTHYROXINE 50 MCG TAB PO SCH (05:30)
[2020-12-06] MEDS: DONEPEZIL 10 MG TAB PO SCH (08:36)
[2020-12-06] MEDS: ZINC SULFATE 220 MG CAP PO SCH (08:37)
[2020-12-06] MEDS: ASPIRIN 81 MG PO SCH (08:37)
[2020-12-06] MEDS: ENOXAPARIN 30 MG/0.3 ML SYRINGE SQ SCH (08:37)
[2020-12-06] MEDS: ASCORBIC ACID 500 MG TAB PO SCH (08:37)
[2020-12-06] MEDS: MEMANTINE 5 MG TAB PO SCH ×2 (08:37→21:07)
[2020-12-06] MEDS: FAMOTIDINE 20 MG TAB PO SCH (08:37)
[2020-12-06] MEDS: CHOLECALCIFEROL 25 MCG (1000 IU) TABLET PO SCH (08:37)
[2020-12-06] MEDS: SODIUM CHLORIDE 0.9% 1,000 ML IV SCH (12:30)
--- NOTE | 2020-12-06 15:05 | P.PN ---
Subjective This is a pleasant 80 years old female with past medical history of dementia. Patient comes from home with taking care of her. Is very poor historian. Patient cannot provide information, she does not follow verbal commands. One time she followed gesture command by raising her hand. However she is awake and keep looking at me. Does not look in distress. Examination looks benign. I talked to her Mr. Pace he says that she is not talking for the last 3 years, she was not talking for more than a year, she does not ask to be fed, she does not ask to be cleaned if she soils or wet herself and he help her with all her daily activity, he has hard time taking care of her and he will consider care home placement. but he brought her to the hospital because she is becoming more sleepy lately I discussed with him her case of advanced versus end-stage dementia with recommendation for palliative consult as out-patient and he agrees On admission she has a fever of 101.9. She is saturating 95% on room air to 2 liters per minute CBC is unremarkable, no leukopenia. No lymphopenia. INR is 1.0. Creatinine elevated 1.25 which looks at baseline of 1.1-1.5 Rest of BMP and liver enzymes and troponin were unremarkable. Urine analysis is suspicious for infection. EKG showing normal sinus rhythm at [address]-T changes. Chest x-ray: No acute process. CT of the brain: Degenerative and nonspecific white matter changes most typical of remote ischemia. No acute hemorrhage or mass effect In the emergency room she received IV fluid and ceftriaxone 12/04/2020 Patient is up in bed staring with no distress, patient nonverbal, does not follow command but has good dilatation is pending. Vitals are stable. Urine culture is growing gram-negative bacilli final culture still pending. Patient remains on ceftriaxone 2 g. Most likely patient symptoms secondary to UTI. However repeat chest x-ray from today showing development left lower lobe pneumonia however patient is not tachypneic, not dyspneic and not hypoxic. Also she has persistent Covid test. Continue gentle hydration. Review of systems: N/a 12/05/2020 Patient is awake, but nonverbal at baseline. Clinically looks stable. Vitals stable. Urine culture is growing gram-negative bacilli or fever. Continue with ceftriaxone. Agree with ID assessment patient has mild Covid. She is saturating 94% on room air and she has no respiratory symptoms possible need placement upon discharge per my discussion with her . die storage worker consulted 12/06/2020 Patient is awake, but nonverbal at baseline. Clinically looks stable. Vitals stable. She has a UTI secondary to E. coli. Continue to ceftriaxone 1 gm daily She has Covid infection but looks as symptomatic die storage worker of the case Objective - Vital Signs Vital signs: Vital Signs Temp 98.5 F 12/06/20 11:38 Pulse 68 12/06/20 11:38 Resp 16 12/06/20 11:38 BP 190/75 12/06/20 11:38 Pulse Ox 95 12/06/20 11:38 Intake & Output 12/05/20 12/06/20 12/06/20 18:59 06:59 18:59 Intake Total 140 0 Output Total 300 520 Balance -160 -520 0 Weight 69.5 kg Intake: Oral 140 0 Output: Urine 300 520 Other: Voiding Method External Catheter External Catheter External Catheter # Voids 1 # Bowel Movements 1 - Exam -GENERAL: The patient is awake, does not follow command, nonverbal x3, which looks this is her baseline not in any acute distress. Well developed, well nourished. HEENT: Pupils are round and equally reacting to light. EOMI. No scleral icterus. No conjunctival pallor. Normocephalic, atraumatic. No pharyngeal erythema. No thyromegaly. CARDIOVASCULAR: S1 and S2 present. No murmurs, rubs, or gallops. -PULMONARY: Chest is clear to auscultation, no wheezing . Bilateral crepitation. Mild tachypnea ABDOMEN: Soft, nontender, nondistended, normoactive bowel sounds. No palpable organomegaly. MUSCULOSKELETAL: No joint swelling or deformity. EXTREMITIES: No cyanosis, clubbing, or pedal edema. NEUROLOGICAL: Gross neurological examination did not reveal any focal deficits. SKIN: No rashes. No petechiae - Labs CBC & Chem 7: 12/04/20 06:32 12/04/20 06:32 Labs: Microbiology - Last 24 Hours (Table) 12/02/20 18:30 Urine Culture - Final Urine,Clean Catch Escherichia coli Assessment and Plan Assessment: Acute urinary tract infection Altered mental status, most likely metabolic encephalopathy. 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 Continue same treatment. Continue with symptomatic treatment. Resume home medication. Monitor lytes and vitals. DVT and GI prophylaxis. Further recommendationsas per clinical course of the patient DVT prophylaxis: Subcutaneous heparin GI Prophylaxis: Pepcid Prognosis is guarded
--- NOTE | 2020-12-06 17:31 | PN ---
PROGRESS NOTE DATE OF SERVICE: 12/06/2020 REASON FOR FOLLOWUP: 1. Urinary tract infection. 2. COVID pneumonia. INTERVAL HISTORY: The patient is afebrile. The patient remains to be nonverbal. She is breathing comfortably on room air. No vomiting, diarrhea or any changes reported by nursing staff. Patient herself unable to provide any history. PHYSICAL EXAMINATION: Blood pressure 119/75, pulse of 68, temperature 98.5. She is 95% on room air. General description is an elderly female lying in bed in no distress. Respiratory system: Unlabored breathing, clear to auscultation anteriorly. Heart is S1, S2. Regular rate and rhythm. Abdomen soft, no tenderness. LABS: No new labs been obtained today. Urine with E coli. DIAGNOSTIC IMPRESSION AND PLAN: 1. Patient with an E coli urinary tract infection, responding to the Rocephin. Finish a short course of oral Ceftin. 2. Positive COVID test. Clinically not behaving as COVID pneumonia. The patient is afebrile and is currently breathing comfortably on room air. Treatment will be mostly supportive. No need for Remdesivir. MMODL / IJN: [id number] /
[2020-12-06] MEDS: hydrALAZINE HCL 25 MG TAB PO PRN (21:12)
[2020-12-07] MEDS: LEVOTHYROXINE 50 MCG TAB PO SCH (05:58)
[2020-12-07] MEDS: hydrALAZINE HCL 25 MG TAB PO PRN (06:03)
[2020-12-07] MEDS: ASPIRIN 81 MG PO SCH (09:00)
[2020-12-07] MEDS: ENOXAPARIN 30 MG/0.3 ML SYRINGE SQ SCH (09:00)
[2020-12-07] MEDS: MEMANTINE 5 MG TAB PO SCH ×2 (09:00→20:30)
[2020-12-07] MEDS: DONEPEZIL 10 MG TAB PO SCH (09:00)
[2020-12-07] MEDS: ZINC SULFATE 220 MG CAP PO SCH (09:00)
[2020-12-07] MEDS: CHOLECALCIFEROL 25 MCG (1000 IU) TABLET PO SCH (09:00)
[2020-12-07] MEDS: ASCORBIC ACID 500 MG TAB PO SCH ×2 (09:00→20:30)
[2020-12-07] MEDS: FAMOTIDINE 20 MG TAB PO SCH (09:00)
--- NOTE | 2020-12-07 16:06 | P.PN ---
Subjective Progress Note Date: 12/07/20 This is an 80-year-old female admitted with acute covid infection, possible developing left lower lobe pneumonia,acute UTI with E. coli , metabolic encephalopathy, advanced Alzheimer's dementia, chronic kidney disease and multiple other medical issues. Maintained on Covid cocktail, maintaining O2 sats in the 90s on room air. Afebrile. Objective - Vital Signs Vital signs: Vital Signs Temp 98.6 F 12/07/20 08:00 Pulse 66 12/07/20 08:00 Resp 17 12/07/20 08:00 BP 158/68 12/07/20 08:00 Pulse Ox 94 L 12/07/20 08:00 Intake & Output 12/06/20 12/07/20 12/07/20 18:59 06:59 18:59 Intake Total 0 Output Total 200 800 Balance -200 -800 Intake: Oral 0 Output: Urine 200 800 Other: Voiding Method External Catheter External Catheter External Catheter - Exam - Exam -GENERAL: The patient is awake, does not follow command, nonverbal x3, appears to be her baseline,no acute distress. Well developed, well nourished. HEENT: Pupils are round and equall,EOMI. No scleral icterus. No conjunctival pallor. Normocephalic, atraumatic. CARDIOVASCULAR: S1 and S2 present. No murmurs, rubs, or gallops. -PULMONARY: Chest is clear to auscultation, no wheezing . Bilateral crepitation. Mild tachypnea ABDOMEN: Soft, nontender, nondistended, normoactive bowel sounds. No palpable organomegaly. EXTREMITIES: No cyanosis, clubbing, or pedal edema. NEUROLOGICAL: Unable to do full assessment given patient's advanced dementia, not following commands. SKIN: Warm and dry, No rashes. - Labs CBC & Chem 7: 12/04/20 06:32 12/04/20 06:32 Assessment and Plan Assessment: Acute urinary tract infection with E. coli Acute Covid infection, ID following Possible developing pneumonia, left lower lobe, pro-calcitonin 0.21 ,though clinically not presenting, infectious disease following Altered mental status, most likely metabolic encephalopathy. On the top of her advanced dementia Advanced Alzheimer dementia, close to end-stage dementia Chronic kidney disease, stage III Positive covid test, asymptomatic Plan: Continue on current medication regime ,monitoring and symptomatic treatment. Maintain Covid cocktail, antibiotics as per infectious disease. Repeat chest x-ray in a.m. Prognosis guarded given multiple medical issues. PT/OT,MARYANNE at discharge. The impression and plan of care has been dictated as directed. : I performed a history and examination of this patient, discussed the same with the dictator. I agree with the dictator's note ,documented as a scribe. Any additional findings or plans will be noted.
--- NOTE | 2020-12-08 00:30 | PN ---
PROGRESS NOTE DATE OF SERVICE: 12/07/2020 REASON FOR FOLLOWUP: 1. Escherichia coli UTI. 2. Positive COVID test. INTERVAL HISTORY: The patient is currently afebrile. She is breathing comfortably; was being fed by the nurse's aide. Patient remains nonverbal and is unable to provide any history. No vomiting, diarrhea or any other changes reported by the nursing staff. PHYSICAL EXAMINATION: Blood pressure 132/65 with a pulse of 67, temperature 98.7. She is 94% on room air. General description is an elderly female up in the bed in no distress. RESPIRATORY SYSTEM: Unlabored breathing. Decreased breath sounds at the bases. No wheeze. HEART: S1, S2. Regular rate and rhythm. ABDOMEN: Soft. No tenderness. LABS: No new labs have been obtained today. DIAGNOSTIC IMPRESSION AND PLAN: Patient admitted to hospital with a fever, mental status changes, more likely related to the E coli UTI. She also has a positive COVID test but does not seem to be symptomatic from it currently. Continue with Rocephin. Recheck the inflammatory markers in the morning. Continue supportive care. MMODL / IJN: [id number] /
[2020-12-08] MEDS: LEVOTHYROXINE 50 MCG TAB PO SCH (06:27)
--- NOTE | 2020-12-08 08:35 | XR ---
EXAMINATION TYPE: XR chest 1V portable DATE OF EXAM: 12/08/2020 Comparison: 12/04/2020 Clinical History: 80-year-old female shortness of breath, Follow-up Findings: Heart normal size. Aorta and pulmonary vasculature within normal limits. Mild hyperinflation. Continu ed focal peripheral left basilar opacity. Possibly some blunting of the lateral costophrenic angle no w. Impression: Continued focal abnormal opacity/pneumonia in the periphery of the left base and now with a possible trace left effusion.
[2020-12-08 08:53] LABS: Albumin 3.2 g/dL (3.5-5.0); C Reactive Protein 2.5 mg/dL (<1.0); Calcium 8.9 mg/dL (8.4-10.2); Potassium 3.7 mmol/L (3.5-5.1); Total Bilirubin 0.4 mg/dL (0.2-1.3); Total Protein 6.6 g/dL (6.3-8.2)
[2020-12-08] MEDS: ASPIRIN 81 MG PO SCH (09:35)
[2020-12-08] MEDS: ZINC SULFATE 220 MG CAP PO SCH (09:35)
[2020-12-08] MEDS: FAMOTIDINE 20 MG TAB PO SCH (09:36)
[2020-12-08] MEDS: ASCORBIC ACID 500 MG TAB PO SCH ×2 (09:36→21:50)
[2020-12-08] MEDS: MEMANTINE 5 MG TAB PO SCH ×2 (09:36→21:50)
[2020-12-08] MEDS: DONEPEZIL 10 MG TAB PO SCH (09:36)
[2020-12-08] MEDS: CHOLECALCIFEROL 25 MCG (1000 IU) TABLET PO SCH (09:36)
[2020-12-08] MEDS: ENOXAPARIN 30 MG/0.3 ML SYRINGE SQ SCH (09:36)
--- NOTE | 2020-12-08 11:55 | P.PN ---
Subjective Progress Note Date: 12/08/20 This is an 80-year-old female admitted with acute covid infection, possible developing left lower lobe pneumonia,acute UTI with E. coli , metabolic encephalopathy, advanced Alzheimer's dementia, chronic kidney disease and multiple other medical issues. Maintained on Covid cocktail, maintaining O2 sats in the 90s on room air. Afebrile. 12/08/2020 worsening O2 sats, down into the low 90s on room air. Chest x-ray reporting continued left base opacity, pneumonia, possible left effusion. T-max 99, normal WBC. Maintained on Rocephin, Covid vitamin supplements, baby aspirin. LDH decreased to 6:15, CRP down to 2.5. Objective - Vital Signs Vital signs: Vital Signs Temp 98.4 F 12/08/20 08:00 Pulse 66 12/08/20 08:00 Resp 18 12/08/20 08:00 BP 162/86 12/08/20 08:00 Pulse Ox 91 L 12/08/20 08:00 Intake & Output 12/07/20 12/08/20 12/08/20 18:59 06:59 18:59 Intake Total 120 118 Output Total 200 350 Balance -80 -350 118 Intake: Oral 120 118 Output: Urine 200 350 Other: Voiding Method External Catheter External Catheter External Catheter - Exam - Exam -GENERAL: awake, does not follow command, nonverbal x3, appears to be her basel ine,no acute distress. Well developed, well nourished. HEENT: Pupils are round and equall,EOMI. No scleral icterus. No conjunctival pallor. Normocephalic, atraumatic. CARDIOVASCULAR: S1 and S2 present. No murmurs, rubs, or gallops. -PULMONARY: Chest is clear to auscultation, no wheezing . Bilateral bases diminished. ABDOMEN: Soft, nontender, nondistended, normoactive bowel sounds. No palpable organomegaly. EXTREMITIES: No cyanosis, clubbing, or pedal edema. NEUROLOGICAL: Limited, Unable to do full assessment given patient's advanced dementia. SKIN: Warm and dry, No rashes. - Labs CBC & Chem 7: 12/04/20 06:32 12/08/20 07:37 Labs: Abnormal Lab Results - Last 24 Hours (Table) 12/08/20 Range/Units 07:37 Sodium 136 L (137-145) mmol/L Glucose 100 H (74-99) mg/dL AST 86 H (14-36) U/L ALT 70 H (4-34) U/L C-Reactive Protein 2.5 H (<1.0) mg/dL Albumin 3.2 L (3.5-5.0) g/dL Assessment and Plan Assessment: Acute urinary tract infection with E. coli Acute Covid infection, ID following Acute hypoxic respiratory failure secondary to the above. Possible developing pneumonia, left lower lobe, pro-calcitonin 0.21 Altered mental status, most likely metabolic encephalopathy. On the top of her advanced dementia Advanced Alzheimer dementia, close to end-stage dementia Chronic kidney disease, stage III Positive covid test, asymptomatic Plan: Continue on current medication regime ,monitoring and symptomatic treatment. Pulmonary consulted, regarding persistent left basilar opacity and possible left effusion with worsening hypoxia.Maintain Covid cocktail, antibiotics as per infectious disease. Prognosis guarded given multiple medical issues. PT/OT,MARYANNE at discharge. The impression and plan of care has been dictated as directed. : I performed a history and examination of this patient, discussed the same with the dictator. I agree with the dictator's note ,documented as a scribe. Any additional findings or plans will be noted.
--- NOTE | 2020-12-08 15:43 | P.CNPUL ---
History of Present Illness Consult date: 12/08/20 Requesting physician: Elan E Sheet Reason for consult: pneumonia Chief complaint: Mental status change and slow to respond as well as weakness History of present illness: This is an 80-year-old female with history of dementia, patient was admitted on 12/02/20, mostly she was admitted with weakness, slow to respond, and worsening dementia. Family was concerned about the possibility of underlying infection, patient had a temp of 101 on admission, and she had slightly elevated creatinine. With a relatively normal chest x-ray, but she was diagnosed with acute urinary tract infection, and dehydration. Patient was tested for COVID-19 infection, and indeed her PCR came back positive. Initial chest x-ray showed basically no evidence of infiltrate, however follow-up chest x-ray showed focal abnormality/opacity in the periphery of the left base, with possible trace of effusion. Hence this consult was initiated. Patient is resting in bed, she is practically on room air, not in any distress, and not much history could be obtained from the patient herself. Review of Systems ROS unobtainable: due to mental status Past Medical History Past Medical History: Dementia History of Any Multi-Drug Resistant Organisms: None Reported Additional Past Surgical History / Comment(s): catarac Past Anesthesia/Blood Transfusion Reactions: Unable to Obtain Additional Past Anesthesia/Blood Transfusion Reaction / Comment(s): Never has recieved blood or blood products Past Psychological History: No Psychological Hx Reported Smoking Status: Never smoker Past Alcohol Use History: None Reported Past Drug Use History: None Reported Medications and Allergies Home Medications Medication Instructions Recorded Confirmed Type Ascorbic Acid [Vitamin C] 500 mg PO DAILY 12/02/20 12/02/20 History Aspirin EC [Ecotrin Low Dose] 81 mg PO DAILY 12/02/20 12/02/20 History Cholecalciferol [Vitamin D3 (25 100 mcg PO DAILY 12/02/20 12/02/20 History Mcg = 1000 Iu)] Donepezil [Aricept] 10 mg PO DAILY 12/02/20 12/02/20 History Levothyroxine Sodium [Synthroid] 50 mcg PO DAILY 12/02/20 12/02/20 History Memantine HCl [Namenda] 5 mg PO BID 12/02/20 12/02/20 History Multivit/Folic Acid/Vit K1 1 tab PO DAILY 12/02/20 12/02/20 History [One-A-Day Women's 50 Plus Tab] Allergies Allergy/AdvReac Type Severity Reaction Status Date / Time aspirin AdvReac Unknown Verified 12/02/20 20:41 Physical Exam Vitals: Vital Signs Temp Pulse Resp BP Pulse Ox 12/08/20 08:00 98.4 F 66 18 162/86 91 L 12/08/20 02:00 97.9 F 66 18 160/74 93 L 12/07/20 20:00 99.0 F 80 18 158/69 94 L Intake and Output 12/08/20 12/08/20 12/08/20 06:59 14:59 22:59 Intake Total 118 Output Total 350 Balance -350 118 Intake: Oral 118 Output: Urine 350 Other: Voiding Method External Catheter -GENERAL: Revealed 80-year-old female in no distress, on room air, nonverbal. HEENT: Pupils are round and equally reacting to light. EOMI. No scleral icterus. No conjunctival pallor. Normocephalic, atraumatic. No pharyngeal erythema. No thyromegaly. CARDIOVASCULAR: S1 and S2 present. No murmurs, rubs, or gallops. -PULMONARY: Symmetrical chest expansion, clear breath sounds bilaterally no crackles or rhonchi or wheezes. ABDOMEN: Soft, nontender, nondistended, normoactive bowel sounds. No palpable organomegaly. MUSCULOSKELETAL: No joint swelling or deformity. EXTREMITIES: No cyanosis, clubbing, or pedal edema. NEUROLOGICAL: Awake, but does not follow any instructions, and nonverbal. SKIN: No rashes. No petechiae Results - Laboratory Findings CBC and BMP: 12/04/20 06:32 12/08/20 07:37 PT/INR, D-dimer PT 10.3 sec (9.0-12.0) 12/02/20 18:30 INR 1.0 (<1.2) 12/02/20 18:30 D-Dimer 0.79 mg/L FEU (<0.60) H 12/04/20 06:32 Abnormal lab findings: Abnormal Labs 12/02/20 12/02/20 12/02/20 18:30 18:30 18:33 Plt Count D-Dimer Sodium 136 L BUN 25 H Creatinine 1.25 H Glucose 105 H Calcium AST 63 H ALT Lactate Dehydrogenase C-Reactive Protein Total Protein Albumin Procalcitonin Urine Appearance Turbid H Urine Protein 1+ H Ur Leukocyte Esterase Large H Urine RBC 19 H Urine WBC >182 H Urine WBC Clumps Many H Ur Squamous Epith Cells 9 H Urine Bacteria Many H Urine Mucus Few H Urine Yeast (Budding) Moderate H SARS-CoV-2 (PCR) Detected A 12/04/20 12/04/20 12/04/20 06:32 06:32 06:32 Plt Count 137 L D-Dimer 0.79 H Sodium BUN Creatinine Glucose Calcium AST ALT Lactate Dehydrogenase C-Reactive Protein Total Protein Albumin Procalcitonin 0.21 H Urine Appearance Urine Protein Ur Leukocyte Esterase Urine RBC Urine WBC Urine WBC Clumps Ur Squamous Epith Cells Urine Bacteria Urine Mucus Urine Yeast (Budding) SARS-CoV-2 (PCR) 12/04/20 12/08/20 12/08/20 06:32 07:31 07:37 Plt Count D-Dimer Sodium 136 L BUN Creatinine Glucose 100 H Calcium 8.2 L AST 50 H 86 H ALT 70 H Lactate Dehydrogenase 672 H C-Reactive Protein 5.0 H 2.5 H Total Protein 6.1 L Albumin 2.9 L 3.2 L Procalcitonin 0.16 H Urine Appearance Urine Protein Ur Leukocyte Esterase Urine RBC Urine WBC Urine WBC Clumps Ur Squamous Epith Cells Urine Bacteria Urine Mucus Urine Yeast (Budding) SARS-CoV-2 (PCR) - Diagnostic Findings Chest x-ray: image reviewed (As noted in HPI) Assessment and Plan Assessment: Impression: Acute urinary tract infection COVID-19 infection, but no clear-cut evidence of COVID-19 pneumonia Left lower lobe opacity, doubt being related to COVID-19 infection, possibility of bacterial pneumonia is not entirely ruled out. Hence I'm recommending a CT angiogram of the chest, and we'll recommend reevaluation after CT angiogram of the chest. Doubt thromboembolic disease/pulmonary embolism, however needs to be considered. Acute urinary tract infection, patient is on Rocephin which would also cover for presumptive bacterial pneumonia if present. Recommendation: Continue present treatment plan, Continue COVID-19 cocktail. Continue droplet isolation. Continue Rocephin. CT angiogram of the chest was ordered. We'll continue to follow Time with Patient: Greater than 30
[2020-12-08] MEDS: hydrALAZINE HCL 25 MG TAB PO PRN (17:20)
--- NOTE | 2020-12-08 18:38 | PN ---
PROGRESS NOTE DATE OF SERVICE: 12/08/2020 REASON FOR FOLLOWUP: 1. E coli urinary tract infection. 2. Positive COVID test. INTERVAL HISTORY: The patient is afebrile. The patient is currently breathing comfortably. The patient is hemodynamically stable. The patient remains nonverbal. No vomiting or diarrhea has been reported. PHYSICAL EXAMINATION: Blood pressure 162/ , pulse of 86, temperature 98.4. She is 93% on room air. General description is an elderly female lying in bed in no distress. RESPIRATORY SYSTEM: Unlabored breathing. Decreased intensity of breath sounds. No wheeze. HEART: S1, S2. Regular rate and rhythm. ABDOMEN: Soft. No tenderness. LABS: BUN of 17, creatinine 0.88. Liver enzymes are mildly elevated. DIAGNOSTIC IMPRESSION AND PLAN: 1. Patient with an Escherichia coli urinary tract infection, for which the patient has been treated with IV Rocephin. Finish therapy with a short course of oral Ceftin. 2. Patient with a positive COVID test with mild illness. Has received monoclonal antibody therapy and treatment has been mostly supportive. However, she did have mild . Patient was seen by Pulmonary. CT has been ordered. Results will be followed. Continue supportive care. MMODL / IJN: [id number] /
--- NOTE | 2020-12-08 19:06 | CT ---
EXAMINATION TYPE: CT chest angio for PE DATE OF EXAM: 12/08/2020 COMPARISON: None HISTORY: elevated d dimer CT DLP: 333.1 mGycm Automated exposure control for dose reduction was used. CONTRAST: Performed with IV Contrast, patient injected with 100 mL of Isovue 370. There are 3-D post processed images. Exam limited slightly by motion. There is some patchy atelectasis at the lung bases. There is small r ight pleural effusion. Heart size is normal. There is no pericardial effusion. There is no mediastinal adenopathy. There are no hilar masses. Thoracic aorta appears intact. There i s no aneurysm or dissection. Ascending aorta measures 3.4 cm. There is normal contrast opacification of the pulmonary arteries. There are no filling defects. Thoracic spine is intact. There is no compression fracture. IMPRESSION: No evidence of pulmonary embolism. Bilateral lower lobe pulmonary patchy atelectasis. Small right ple ural effusion. Mild pleural thickening at the lung bases.
[2020-12-09] MEDS: LEVOTHYROXINE 50 MCG TAB PO SCH (05:36)
[2020-12-09] MEDS: MEMANTINE 5 MG TAB PO SCH ×2 (09:24→20:11)
[2020-12-09] MEDS: ZINC SULFATE 220 MG CAP PO SCH (09:24)
[2020-12-09] MEDS: CHOLECALCIFEROL 25 MCG (1000 IU) TABLET PO SCH (09:24)
[2020-12-09] MEDS: ASCORBIC ACID 500 MG TAB PO SCH ×2 (09:24→20:11)
[2020-12-09] MEDS: ASPIRIN 81 MG PO SCH (09:24)
[2020-12-09] MEDS: DONEPEZIL 10 MG TAB PO SCH (09:24)
[2020-12-09] MEDS: FAMOTIDINE 20 MG TAB PO SCH (09:24)
[2020-12-09] MEDS: ENOXAPARIN 30 MG/0.3 ML SYRINGE SQ SCH (09:24)
--- NOTE | 2020-12-09 12:36 | P.PN ---
Subjective Progress Note Date: 12/09/20 Principal diagnosis: COVID-19 infection, UTI This is an 80-year-old female with history of dementia, patient was admitted on 12/02/20, mostly she was admitted with weakness, slow to respond, and worsening dementia. Family was concerned about the possibility of underlying infection, patient had a temp of 101 on admission, and she had slightly elevated creatinine. With a relatively normal chest x-ray, but she was diagnosed with acute urinary tract infection, and dehydration. Patient was tested for COVID-19 infection, and indeed her PCR came back positive. Initial chest x-ray showed basically no evidence of infiltrate, however follow-up chest x-ray showed focal abnormality/opacity in the periphery of the left base, with possible trace of effusion. Hence this consult was initiated. Patient is resting in bed, she is practically on room air, not in any distress, and not much history could be obtained from the patient herself. The patient is seen today 12/09/2020 in follow-up on the selective care unit. She is currently resting flat in bed. Awake. Alert. No acute distress. She is nonverbal. She is maintaining O2 saturations on room air. Pro calcitonin 0. 16. CT angiogram revealed no evidence of pulmonary embolism. There is some bilateral patchy atelectasis in the bases. Urine culture positive for E. coli. Currently on ceftriaxone. She remains on vitamin supplements, Lovenox. Objective - Vital Signs Vital signs: Vital Signs Temp 97.9 F 12/09/20 09:23 Pulse 72 12/09/20 09:23 Resp 18 12/09/20 09:23 BP 124/90 12/09/20 09:23 Pulse Ox 93 L 12/09/20 09:23 Intake & Output 12/08/20 12/09/20 12/09/20 18:59 06:59 18:59 Intake Total 236 118 Output Total 550 500 Balance -314 -500 118 Intake: Oral 236 118 Output: Urine 550 500 Other: Voiding Method External Catheter External Catheter External Catheter - Exam -GENERAL: Revealed 80-year-old female him a nonverbal, in no distress, on room air. HEENT: Pupils are round and equally reacting to light. EOMI. No scleral icterus. No conjunctival pallor. Normocephalic, atraumatic. No pharyngeal erythema. No thyromegaly. CARDIOVASCULAR: S1 and S2 present. No murmurs, rubs, or gallops. -PULMONARY: Symmetrical chest expansion, clear breath sounds bilaterally no crackles or rhonchi or wheezes. ABDOMEN: Soft, nontender, nondistended, normoactive bowel sounds. No palpable organomegaly. MUSCULOSKELETAL: No joint swelling or deformity. EXTREMITIES: No cyanosis, clubbing, or pedal edema. NEUROLOGICAL: Awake, but does not follow any instructions, and nonverbal. SKIN: No rashes. No petechiae - Labs CBC & Chem 7: 12/04/20 06:32 12/08/20 07:37 Labs: Abnormal Lab Results - Last 24 Hours (Table) 12/08/20 Range/Units 07:31 Procalcitonin 0.16 H (0.02-0.09) ng/mL Assessment and Plan Assessment: 1 Acute urinary tract infection 2 COVID-19 infection, but no clear-cut evidence of COVID-19 pneumonia. Procalci tonin and 0.16. 3 Left lower lobe opacity, doubt being related to COVID-19 infection, possibility of bacterial pneumonia is not entirely ruled out. CT angiogram of the chest ruled out pulmonary embolism. 4 Acute urinary tract infection, secondary to E. coli currently on ceftriaxone Plan: The patient was seen and evaluated by Dr. Aleida Ray from the pulmonary standpoint, on room air Cleared for discharge We will see as needed I, the cosigning physician, performed a history & physical examination of the patient. Lungs sounds are clear. Maintaining good O2 saturations in the 90s on room air. I discussed the assessment and plan of care with my nurse practitioner, Linh Medrano. I attest to the above note as dictated by her.
--- NOTE | 2020-12-09 13:42 | P.PN ---
Subjective Progress Note Date: 12/09/20 This is an 80-year-old female admitted with acute covid infection, possible developing left lower lobe pneumonia,acute UTI with E. coli , metabolic encephalopathy, advanced Alzheimer's dementia, chronic kidney disease and multiple other medical issues. Maintained on Covid cocktail, maintaining O2 sats in the 90s on room air. Afebrile. 12/08/2020 worsening O2 sats, down into the low 90s on room air. Chest x-ray reporting continued left base opacity, pneumonia, possible left effusion. T-max 99, normal WBC. Maintained on Rocephin, Covid vitamin supplements, baby aspirin. LDH decreased to 6:15, CRP down to 2.5. 12/09/2020 maintained on Rocephin, Covid cocktail. O2 sats in the 90s on room ai r. T-max 99. Chest CTA reported no evidence of pulmonary embolism, bilateral lower lobe pulmonary patchy atelectasis. Objective - Vital Signs Vital signs: Vital Signs Temp 97.9 F 12/09/20 09:23 Pulse 72 12/09/20 09:23 Resp 18 12/09/20 09:23 BP 124/90 12/09/20 09:23 Pulse Ox 93 L 12/09/20 09:23 Intake & Output 12/08/20 12/09/20 12/09/20 18:59 06:59 18:59 Intake Total 236 118 Output Total 550 500 Balance -314 -500 118 Intake: Oral 236 118 Output: Urine 550 500 Other: Voiding Method External Catheter External Catheter External Catheter - Exam - Exam -GENERAL: awake, does not follow command, nonverbal x3, appears to be her ba seline,no acute distress. HEENT: Pupils are round and equall,EOMI. No scleral icterus. No conjunctival pallor. Normocephalic, atraumatic. CARDIOVASCULAR: S1 and S2 present. No murmurs, rubs, or gallops. -PULMONARY: Chest is clear to auscultation, no wheezing . Bilateral bases diminished. ABDOMEN: Soft, nontender, nondistended, normoactive bowel sounds. EXTREMITIES: No cyanosis, clubbing, or pedal edema. NEUROLOGICAL: Limited, Unable to do full assessment given patient's advanced dementia. SKIN: Warm and dry, No rashes. - Labs CBC & Chem 7: 12/04/20 06:32 12/08/20 07:37 Assessment and Plan Assessment: Acute urinary tract infection with E. coli Acute Covid infection, ID following Acute hypoxic respiratory failure secondary to the above. Possible developing pneumonia, left lower lobe, pro-calcitonin 0.21 Altered mental status, most likely metabolic encephalopathy. On the top of her advanced dementia Advanced Alzheimer dementia, close to end-stage dementia Chronic kidney disease, stage III Positive covid test, asymptomatic Plan: Continue on current medication regime ,monitoring and symptomatic treatment. Maintain Covid cocktail, antibiotics as per infectious disease. Prognosis guarded given multiple medical issues. Patient is ready for discharge to [facility], pending pulmonary clearance and final DC recommendations. DC antibiotics as per infectious disease. The impression and plan of care has been dictated as directed. : I performed a history and examination of this patient, discussed the same with the dictator. I agree with the dictator's note ,documented as a scribe. Any additional findings or plans will be noted.
--- NOTE | 2020-12-09 19:02 | PN ---
PROGRESS NOTE DATE OF SERVICE: 12/09/2020 REASON FOR FOLLOWUP: UTI and COVID pneumonia. INTERVAL HISTORY: The patient is afebrile. The patient is currently breathing comfortably. The patient is hemodynamically stable. The patient remains nonverbal and is unable to provide history. No vomiting or diarrhea has been reported. PHYSICAL EXAMINATION: Blood pressure 150/80 with a pulse of 73, temperature 98.9. She is 98% on room air. General description is an elderly female lying in bed in no distress. Respiratory system: Unlabored breathing, clear to auscultation anteriorly. Heart S1, S2. Regular rate and rhythm. Abdomen soft, no tenderness. Extremities: No edema of the feet. LABS: No new labs have been obtained today. The patient did have a CT angiogram which was completed last night. No evidence of PE, bilateral ( ). DIAGNOSTIC IMPRESSION AND PLAN: 1. Patient with E coli UTI, has been adequately treated, currently on Rocephin. 2. Patient with COVID pneumonia. The patient is currently not hypoxic. No evidence of pneumonia has been seen on the CT angiogram. Continue with Lovenox, ascorbic acid and respiratory support and monitor clinical course closely. MMODL / IJN: [id number] /
[2020-12-10] MEDS: LEVOTHYROXINE 50 MCG TAB PO SCH (05:25)
[2020-12-10] MEDS: hydrALAZINE HCL 25 MG TAB PO PRN (09:19)
[2020-12-10] MEDS: ZINC SULFATE 220 MG CAP PO SCH (09:22)
[2020-12-10] MEDS: ASPIRIN 81 MG PO SCH (09:22)
[2020-12-10] MEDS: FAMOTIDINE 20 MG TAB PO SCH (09:22)
[2020-12-10] MEDS: ASCORBIC ACID 500 MG TAB PO SCH ×2 (09:22→20:57)
[2020-12-10] MEDS: CHOLECALCIFEROL 25 MCG (1000 IU) TABLET PO SCH (09:22)
[2020-12-10] MEDS: MEMANTINE 5 MG TAB PO SCH ×2 (09:22→20:57)
[2020-12-10] MEDS: ENOXAPARIN 30 MG/0.3 ML SYRINGE SQ SCH (09:22)
[2020-12-10] MEDS: DONEPEZIL 10 MG TAB PO SCH (09:22)
[2020-12-10] MEDS: hydrALAZINE HCL 25 MG TAB PO SCH ×4 (09:39→20:57)
[2020-12-10 10:36] VITALS: BMI 29.9
--- NOTE | 2020-12-10 13:29 | P.PN ---
Subjective Progress Note Date: 12/10/20 Principal diagnosis: COVID-19 infection, UTI This is an 80-year-old female with history of dementia, patient was admitted on 12/02/20, mostly she was admitted with weakness, slow to respond, and worsening dementia. Family was concerned about the possibility of underlying infection, patient had a temp of 101 on admission, and she had slightly elevated creatinine. With a relatively normal chest x-ray, but she was diagnosed with acute urinary tract infection, and dehydration. Patient was tested for COVID-19 infection, and indeed her PCR came back positive. Initial chest x-ray showed basically no evidence of infiltrate, however follow-up chest x-ray showed focal abnormality/opacity in the periphery of the left base, with possible trace of effusion. Hence this consult was initiated. Patient is resting in bed, she is practically on room air, not in any distress, and not much history could be obtained from the patient herself. The patient is seen today 12/09/2020 in follow-up on the selective care unit. She is currently resting flat in bed. Awake. Alert. No acute distress. She is nonverbal. She is maintaining O2 saturations on room air. Pro calcitonin 0. 16. CT angiogram revealed no evidence of pulmonary embolism. There is some bilateral patchy atelectasis in the bases. Urine culture positive for E. coli. Currently on ceftriaxone. She remains on vitamin supplements, Lovenox. The patient is seen today 12/10/2020 in follow-up on the selective care unit. She remains awake and alert in no acute distress. Nonverbal. Maintaining O2 saturations in the mid 90s on room air. She's been afebrile. Somewhat hypertensive. Urine culture positive for E. coli. No new labs. Continued on ceftriaxone. Remains on Lovenox for DVT prophylaxis. Vitamin supplements. Objective - Vital Signs Vital signs: Vital Signs Temp 98.9 F 12/10/20 09:18 Pulse 72 12/10/20 09:18 Resp 16 12/10/20 09:18 BP 199/95 12/10/20 09:18 Pulse Ox 95 12/10/20 09:18 Intake & Output 12/09/20 12/10/20 12/10/20 18:59 06:59 18:59 Intake Total 236 50 220 Output Total 200 Balance 36 50 220 Weight 69.5 kg Intake: Oral 236 50 220 Output: Urine 200 Other: Voiding Method External Catheter External Catheter External Catheter # Voids 2 1 - Exam GENERAL: Revealed 80-year-old female, nonverbal, in no distress, on room air. HEENT: Pupils are round and equally reacting to light. EOMI. No scleral icterus. No conjunctival pallor. Normocephalic, atraumatic. No pharyngeal erythema. No thyromegaly. CARDIOVASCULAR: S1 and S2 present. No murmurs, rubs, or gallops. -PULMONARY: Symmetrical chest expansion, clear breath sounds bilaterally with faint crackles in the posterior bases. ABDOMEN: Soft, nontender, nondistended, normoactive bowel sounds. No palpable organomegaly. MUSCULOSKELETAL: No joint swelling or deformity. EXTREMITIES: No cyanosis, clubbing, or pedal edema. NEUROLOGICAL: Awake, but does not follow any instructions, and nonverbal. SKIN: No rashes. No petechiae - Labs CBC & Chem 7: 12/04/20 06:32 12/08/20 07:37 Assessment and Plan Assessment: 1 Acute urinary tract infection 2 COVID-19 infection, but no clear-cut evidence of COVID-19 pneumonia. Procalcitonin and 0.16. 3 Left lower lobe opacity, doubt being related to COVID-19 infection, possibility of bacterial pneumonia is not entirely ruled out. CT angiogram of the chest ruled out pulmonary embolism. 4 Acute urinary tract infection, secondary to E. coli currently on ceftriaxone Plan: The patient was seen and evaluated by Dr. Aleida Ray from the pulmonary standpoint, on room air Lovenox for DVT prophylaxis, vitamin supplements Antibiotics in the form of ceftriaxone Discharge planning in place We will see as needed I, the cosigning physician, performed a history & physical examination of the patient. Lungs sounds with faint crackles in bilateral bases. Maintaining good O2 saturations in the 90s on room air. I discussed the assessment and plan of care with my nurse practitioner, Linh Medrano. I attest to the above note as dictated by her.
--- NOTE | 2020-12-10 14:56 | P.PN ---
Subjective Progress Note Date: 12/10/20 This is an 80-year-old female admitted with acute covid infection, possible developing left lower lobe pneumonia,acute UTI with E. coli , metabolic encephalopathy, advanced Alzheimer's dementia, chronic kidney disease and multiple other medical issues. Maintained on Covid cocktail, maintaining O2 sats in the 90s on room air. Afebrile. 12/08/2020 worsening O2 sats, down into the low 90s on room air. Chest x-ray reporting continued left base opacity, pneumonia, possible left effusion. T-max 99, normal WBC. Maintained on Rocephin, Covid vitamin supplements, baby aspirin. LDH decreased to 6:15, CRP down to 2.5. 12/09/2020 maintained on Rocephin, Covid cocktail. O2 sats in the 90s on room ai r. T-max 99. Chest CTA reported no evidence of pulmonary embolism, bilateral lower lobe pulmonary patchy atelectasis. 12/10/2020 continues maintaining O2 sats in the 90s on room air. Hypertensive, T-max 99. Consumed 25% of breakfast and 50% of lunch, tolerating with no nausea vomiting or diarrhea. Objective - Vital Signs Vital signs: Vital Signs Temp 98.9 F 12/10/20 13:25 Pulse 85 12/10/20 13:25 Resp 16 12/10/20 13:25 BP 180/91 12/10/20 13:25 Pulse Ox 94 L 12/10/20 13:25 Intake & Output 12/09/20 12/10/20 12/10/20 18:59 06:59 18:59 Intake Total 236 50 220 Output Total 200 Balance 36 50 220 Weight 69.5 kg Intake: Oral 236 50 220 Output: Urine 200 Other: Voiding Method External Catheter External Catheter External Catheter # Voids 2 1 - Exam - Exam -GENERAL: awake, does not follow command, nonverbal, appears to be her baseline,no acute distress. HEENT: Pupils are round and equall,EOMI. No scleral icterus. No conjunctival pallor. Normocephalic, atraumatic. CARDIOVASCULAR: S1 and S2 present. No murmurs, rubs, or gallops. -PULMONARY: Chest is clear to auscultation, no wheezing . Bilateral bases diminished. ABDOMEN: Soft, nontender, nondistended, normoactive bowel sounds. EXTREMITIES: No cyanosis, clubbing, or pedal edema. NEUROLOGICAL: Limited, Unable to do full assessment given patient's advanced dementia. SKIN: Warm and dry, No rashes. - Labs CBC & Chem 7: 12/04/20 06:32 12/08/20 07:37 Assessment and Plan Assessment: Acute urinary tract infection with E. coli Acute Covid infection, ID following Acute hypoxic respiratory failure secondary to the above. Possible developing pneumonia, left lower lobe, pro-calcitonin 0.21 Altered mental status, most likely metabolic encephalopathy. On the top of her advanced dementia Advanced Alzheimer dementia, close to end-stage dementia Chronic kidney disease, stage III Positive covid test, asymptomatic Plan: Continue on current medication regime ,monitoring and symptomatic treatment. Maintain Covid cocktail, antibiotics as per infectious disease. Patient is ready for discharge to [facility], pending room availability. Potential discharge tomorrow to [facility] or [facility] as per social work. The impression and plan of care has been dictated as directed. : I performed a history and examination of this patient, discussed the same with the dictator. I agree with the dictator's note ,documented as a scribe. Any additional findings or plans will be noted.
--- NOTE | 2020-12-10 19:17 | PN ---
PROGRESS NOTE DATE OF SERVICE: 12/10/2020 REASON FOR FOLLOWUP: 1. E coli urinary tract infection. 2. Positive COVID test. INTERVAL HISTORY: The patient is afebrile. The patient remains to be nonverbal, unable to provide any history. No vomiting or diarrhea or any other changes reported by the nursing staff. PHYSICAL EXAMINATION: Blood pressure 180/91 with a pulse of 85, temperature 98.9. She is 94% on room air. General description is an elderly female lying in bed in no distress. Respiratory system: Unlabored breathing, decreased intensity of the breath sounds, no wheeze. Heart S1, S2. Regular rate and rhythm. Abdomen soft, no tenderness. LABS: No new labs have been obtained today. DIAGNOSTIC IMPRESSION AND PLAN: 1. Patient with an E coli urinary tract infection, currently being treated with Rocephin. Can be ( ) on discharge. 2. COVID pneumonia, mildly hypoxemic. Continue the Lovenox, zinc, ascorbic acid and respiratory support and monitor clinical course closely.. LOYDA / RONALDN: [id number] /
[2020-12-11] MEDS: LEVOTHYROXINE 50 MCG TAB PO SCH (06:05)
[2020-12-11] MEDS: ZINC SULFATE 220 MG CAP PO SCH (09:01)
[2020-12-11] MEDS: MEMANTINE 5 MG TAB PO SCH ×2 (09:01→21:02)
[2020-12-11] MEDS: ASCORBIC ACID 500 MG TAB PO SCH ×2 (09:01→21:02)
[2020-12-11] MEDS: hydrALAZINE HCL 25 MG TAB PO SCH ×4 (09:01→21:02)
[2020-12-11] MEDS: CHOLECALCIFEROL 25 MCG (1000 IU) TABLET PO SCH (09:01)
[2020-12-11] MEDS: ENOXAPARIN 30 MG/0.3 ML SYRINGE SQ SCH (09:02)
[2020-12-11] MEDS: FAMOTIDINE 20 MG TAB PO SCH (09:02)
[2020-12-11] MEDS: DONEPEZIL 10 MG TAB PO SCH (09:02)
[2020-12-11] MEDS: ASPIRIN 81 MG PO SCH (09:02)
--- NOTE | 2020-12-11 11:23 | P.DS ---
Providers Date of admission: 12/04/20 09:51 Expected date of discharge: 12/11/20 Attending physician: Lawrence Sloan Consults: 12/03/20 07:18 Consult Physician Urgent Consulting Provider: Shanelle Salinas Consult Reason/Comments: Fever, UTI. Positive Covid test Do you want consulting provider notified?: Yes 12/08/20 11:43 Consult Physician Routine Consulting Provider: Naveen Shin Consult Reason/Comments: abn xray, Hypoxia Do you want consulting provider notified?: Yes Primary care physician: Lawrence Sloan Hospital Course: Final Diagnoses: Acute urinary tract infection with E. coli Acute Covid infection, ID following Acute hypoxic respiratory failure secondary to the above. Possible developing pneumonia, left lower lobe, pro-calcitonin 0.21 Altered mental status, most likely metabolic encephalopathy. On the top of her advanced dementia Advanced Alzheimer dementia, close to end-stage dementia Chronic kidney disease, stage III Positive covid test, asymptomatic Hospital course:This is an 80-year-old female admitted with acute covid infection, possible developing left lower lobe pneumonia,acute UTI with E. coli , metabolic encephalopathy, advanced Alzheimer's dementia, chronic kidney disease and multiple other medical issues. Maintained on Covid cocktail, maintaining O2 sats in the 90s on room air. Afebrile. 12/08/2020 worsening O2 sats, down into the low 90s on room air. Chest x-ray reporting continued left base opacity, pneumonia, possible left effusion. T-max 99, normal WBC. Maintained on Rocephin, Covid vitamin supplements, baby aspirin. LDH decreased to 6:15, CRP down to 2.5. 12/09/2020 maintained on Rocephin, Covid cocktail. O2 sats in the 90s on room air. T-max 99. Chest CTA reported no evidence of pulmonary embolism, bilateral lower lobe pulmonary patchy atelectasis. 12/10/2020 continues maintaining O2 sats in the 90s on room air. Hypertensive, T-max 99. Consumed 25% of breakfast and 50% of lunch, tolerating with no nausea vomiting or diarrhea. Significant clinical improvement. Patient will be discharged to [facility], in a stable condition with guarded prognosis. The impression and plan of care has been dictated as directed. : I performed a history and examination of this patient, discussed the same with the dictator. I agree with the dictator's note ,documented as a scribe. Any additional findings or plans will be noted. Patient Condition at Discharge: Stable Plan - Discharge Summary Discharge Rx Participant: No New Discharge Prescriptions: New hydrALAZINE HCL [Apresoline] 25 mg PO QID tab Zinc Sulfate [Orazinc] 220 mg PO DAILY cap Famotidine [Pepcid] 20 mg PO DAILY tab Acetaminophen Tab [Tylenol] 650 mg PO Q6HR PRN tab PRN Reason: Mild Pain Or Fever > 100.5 Continue Cholecalciferol [Vitamin D3 (25 Mcg = 1000 Iu)] 100 mcg PO DAILY Donepezil [Aricept] 10 mg PO DAILY Ascorbic Acid [Vitamin C] 500 mg PO DAILY Memantine HCl [Namenda] 5 mg PO BID Aspirin EC [Ecotrin Low Dose] 81 mg PO DAILY Multivit/Folic Acid/Vit K1 [One-A-Day Women's 50 Plus Tab] 1 tab PO DAILY Levothyroxine Sodium [Synthroid] 50 mcg PO DAILY Discharge Medication List Ascorbic Acid [Vitamin C] 500 mg PO DAILY 12/02/20 [History] Aspirin EC [Ecotrin Low Dose] 81 mg PO DAILY 12/02/20 [History] Cholecalciferol [Vitamin D3 (25 Mcg = 1000 Iu)] 100 mcg PO DAILY 12/02/20 [History] Donepezil [Aricept] 10 mg PO DAILY 12/02/20 [History] Levothyroxine Sodium [Synthroid] 50 mcg PO DAILY 12/02/20 [History] Memantine HCl [Namenda] 5 mg PO BID 12/02/20 [History] Multivit/Folic Acid/Vit K1 [One-A-Day Women's 50 Plus Tab] 1 tab PO DAILY 11/14 [History] Acetaminophen Tab [Tylenol] 650 mg PO Q6HR PRN tab 12/11/20 [Rx] Famotidine [Pepcid] 20 mg PO DAILY tab 12/11/20 [Rx] Zinc Sulfate [Orazinc] 220 mg PO DAILY cap 12/11/20 [Rx] hydrALAZINE HCL [Apresoline] 25 mg PO QID tab 12/11/20 [Rx] Follow up Appointment(s)/Referral(s): Lawrence Sloan DO [Primary Care Provider] - 1 Week (After DC from subacute rehab ) Activity/Diet/Wound Care/Special Instructions: Medi PH CBC,BMP in 3 days Discharge Disposition: TRANSFER TO SNF/ECF
--- NOTE | 2020-12-11 17:05 | PN ---
PROGRESS NOTE DATE OF SERVICE: 12/11/2020 REASON FOR FOLLOWUP: 1. E coli urinary tract infection. 2. COVID-19 pneumonia. INTERVAL HISTORY: The patient is afebrile. The patient remains to be nonverbal. H is unable to provide any history. The patient remains to be on room air and is breathing comfortably. No vomiting, diarrhea or any other changes reported by the nursing staff. PHYSICAL EXAMINATION: Blood pressure is 137/73 with a pulse of 87, temperature is 97.9. She is 94% on room. General description is an elderly female lying in bed in no distress. Respiratory system: Unlabored breathing, decreased intensity of breath sounds. No wheeze. Heart S1, S2. Regular rate and rhythm. Abdomen soft, no tenderness. Extremities: No edema of the feet. LABS: No new labs have been obtained today. DIAGNOSTIC IMPRESSION AND PLAN: 1. Patient with an E coli UTI that has been adequately treated. No need for antibiotic on discharge. 2. Patient with positive COVID test, mild illness with no need for supplemental oxygen, treatment is mostly supportive. No need for antiviral or steroids. MMODL / IJN: [id number] /
[2020-12-12] MEDS: LEVOTHYROXINE 50 MCG TAB PO SCH (05:50)
[2020-12-12] MEDS: CHOLECALCIFEROL 25 MCG (1000 IU) TABLET PO SCH (07:49)
[2020-12-12] MEDS: FAMOTIDINE 20 MG TAB PO SCH (07:49)
[2020-12-12] MEDS: MEMANTINE 5 MG TAB PO SCH ×2 (07:49→21:31)
[2020-12-12] MEDS: ASCORBIC ACID 500 MG TAB PO SCH ×2 (07:49→21:30)
[2020-12-12] MEDS: ASPIRIN 81 MG PO SCH (07:49)
[2020-12-12] MEDS: DONEPEZIL 10 MG TAB PO SCH (07:49)
[2020-12-12] MEDS: ENOXAPARIN 40 MG/0.4 ML SYRINGE SQ SCH (07:49)
[2020-12-12] MEDS: hydrALAZINE HCL 25 MG TAB PO SCH ×4 (07:49→21:30)
[2020-12-12] MEDS: ZINC SULFATE 220 MG CAP PO SCH (07:50)
--- NOTE | 2020-12-12 12:32 | P.PN ---
Subjective 80-year-old female admitted for Covid 19 infection acute hypoxic respiratory failure which resolved at this time patient was also treated for urinary tract infection patient is awaiting disposition to subacute intimidation patient's pro calcitonin is very low because of which are or dyspnea all antibodies at this time. Patient really appears to have received a week of Rocephin anyway. Patient is nonverbal unable to obtain any review of systems. All inpatient medications were reviewed and appropriate changes in these medications as dictated in the interval history and assessment and plan. PHYSICAL EXAMINATION: GENERAL: Alert nonverbal, not in any acute distress. Well developed, well nourished. HEENT: Pupils are round and equally reacting to light. EOMI. No scleral icterus. No conjunctival pallor. Normocephalic, atraumatic. No pharyngeal erythema. No thyromegaly. CARDIOVASCULAR: S1 and S2 present. No murmurs, rubs, or gallops. PULMONARY: Chest is clear to auscultation, no wheezing or crackles. ABDOMEN: Soft, nontender, nondistended, normoactive bowel sounds. No palpable organomegaly. MUSCULOSKELETAL: No joint swelling or deformity. EXTREMITIES: No cyanosis, clubbing, or pedal edema. NEUROLOGICAL: Limited unable to assess SKIN: No rashes. Assessment and plan -Acute hypoxic respiratory failure second to Covid 19 pneumonia which improved -Metabolic encephalopathy improved -Dementia appears to be advanced mostly nonverbal -Hypothyroidism patient is awaiting disposition to subacute rehabitation DVT prophylaxis: Lovenox Objective - Vital Signs Vital signs: Vital Signs Temp 98.1 F 12/12/20 10:00 Pulse 86 12/12/20 10:00 Resp 18 12/12/20 10:00 BP 157/88 12/12/20 10:00 Pulse Ox 98 12/12/20 10:00 Intake & Output 12/11/20 12/12/20 12/12/20 18:59 06:59 18:59 Intake Total 598 Output Total 550 550 Balance 48 -550 Intake: Oral 598 Output: Urine 550 550 Other: Voiding Method External Catheter External Catheter External Catheter # Voids 1 # Bowel Movements 1 - Labs CBC & Chem 7: 12/04/20 06:32 12/08/20 07:37
--- NOTE | 2020-12-12 18:09 | PN ---
PROGRESS NOTE DATE OF SERVICE: 12/12/2020 REASON FOR FOLLOWUP: UTI and COVID-19 pneumonia. INTERVAL HISTORY: The patient is afebrile. The patient is currently breathing comfortably. She is waiting for placement. Still on room air. Remains to be nonverbal, unable to provide any history. No vomiting, diarrhea or any other changes reported by nursing staff. PHYSICAL EXAMINATION: Blood pressure is 157/88, pulse of 83, temperature of 98.1. She is 98% on room air. General description is an elderly female lying in bed in no distress. Respiratory system: Unlabored breathing, decreased intensity of breath sounds in the base, with no wheeze. Heart S1, S2. Regular rate and rhythm. Abdomen soft, no tenderness. LABS: No new labs been obtained today. DIAGNOSTIC IMPRESSION AND PLAN: 1. Patient with E coli urinary tract infection that has been adequately treated. Completed antibiotic therapy. Will monitor the patient closely off antibiotic. 2. Patient with COVID-19 pneumonia mild illness, treated supportively. Continue with zinc, ascorbic acid and Lovenox. No need for steroids or Remdesivir. MMODL / IJN: [id number] /
[2020-12-13 03:27] VITALS: RESP 18
[2020-12-13] MEDS: LEVOTHYROXINE 50 MCG TAB PO SCH (05:34)
[2020-12-13 06:43] VITALS: TEMP 98.4
[2020-12-13] MEDS: ZINC SULFATE 220 MG CAP PO SCH (08:07)
[2020-12-13] MEDS: MEMANTINE 5 MG TAB PO SCH (08:07)
[2020-12-13] MEDS: DONEPEZIL 10 MG TAB PO SCH (08:07)
[2020-12-13] MEDS: hydrALAZINE HCL 25 MG TAB PO SCH (08:07)
[2020-12-13] MEDS: ASCORBIC ACID 500 MG TAB PO SCH (08:07)
[2020-12-13] MEDS: ASPIRIN 81 MG PO SCH (08:07)
[2020-12-13] MEDS: CHOLECALCIFEROL 25 MCG (1000 IU) TABLET PO SCH (08:07)
[2020-12-13] MEDS: FAMOTIDINE 20 MG TAB PO SCH (08:07)
[2020-12-13] MEDS: ENOXAPARIN 40 MG/0.4 ML SYRINGE SQ SCH (08:07)
[2020-12-13 10:21] VITALS: BP 155/88; PULSE 88
--- NOTE | 2020-12-13 11:22 | P.PN ---
Subjective 80-year-old female admitted for Covid 19 infection acute hypoxic respiratory failure which resolved at this time patient was also treated for urinary tract infection patient is awaiting disposition to subacute intimidation patient's pro calcitonin is very low because of which are or dyspnea all antibodies at this time. Patient really appears to have received a week of Rocephin anyway. 12/13/2020 Patient is awaiting discharge tomorrow. No significant changes compared to yesterday Patient is nonverbal unable to obtain any review of systems. All inpatient medications were reviewed and appropriate changes in these medications as dictated in the interval history and assessment and plan. PHYSICAL EXAMINATION: GENERAL: Alert nonverbal, not in any acute distress. Well developed, well nourished. HEENT: Pupils are round and equally reacting to light. EOMI. No scleral icterus. No conjunctival pallor. Normocephalic, atraumatic. No pharyngeal erythema. No thyromegaly. CARDIOVASCULAR: S1 and S2 present. No murmurs, rubs, or gallops. PULMONARY: Chest is clear to auscultation, no wheezing or crackles. ABDOMEN: Soft, nontender, nondistended, normoactive bowel sounds. No palpable organomegaly. MUSCULOSKELETAL: No joint swelling or deformity. EXTREMITIES: No cyanosis, clubbing, or pedal edema. NEUROLOGICAL: Limited unable to assess SKIN: No rashes. Assessment and plan -Acute hypoxic respiratory failure second to Covid 19 pneumonia which improved -Metabolic encephalopathy improved -Dementia appears to be advanced mostly nonverbal -Hypothyroidism patient is awaiting disposition to subacute rehabitation DVT prophylaxis: Lovenox Objective - Vital Signs Vital signs: Vital Signs Temp 98.4 F 12/13/20 10:00 Pulse 88 12/13/20 10:00 Resp 18 12/13/20 10:00 BP 155/88 12/13/20 10:00 Pulse Ox 96 12/13/20 10:00 Intake & Output 12/12/20 12/13/20 12/13/20 18:59 06:59 18:59 Intake Total 50 Output Total 600 250 Balance -550 -250 Intake: Intake, IV Titration 50 Amount cefTRIAXone 1 gm In 50 Sodium Chloride 0.9% 50 ml @ 100 mls/hr IVPB Q24HR [facility] Rx#:[id number] Output: Urine 600 250 Other: Voiding Method External Catheter External Catheter External Catheter # Bowel Movements 1 - Labs CBC & Chem 7: 12/04/20 06:32 12/08/20 07:37
== END 2020-12-13 11:33 | DRG 689 ==
LOC: EC 17:23 → 3SCARD 21:08 → OBSVTOIN 12-04 09:51 → 4SSUR 12-12 01:59
PROVIDERS: ADMIT Family Medicine; ATTEND Family Medicine
PROC: XW033H6 Introduction of Other New Technology Monoclonal Antibody into Peripheral Vein, Percutaneous Approach, New Technology Group 6 (ICD-10-PCS; principal; 2020-12-04)
PROC: 3E0F7SF Introduction of Other Gas into Respiratory Tract, Via Natural or Artificial Opening (ICD-10-PCS; 2020-12-04)
DX: N39.0 Urinary tract infection, site not specified (principal); U07.1 COVID-19; G93.41 Metabolic encephalopathy; J96.01 Acute respiratory failure with hypoxia; J15.9 Unspecified bacterial pneumonia; J98.11 Atelectasis; Z20.822 Contact with and (suspected) exposure to COVID-19; G30.9 Alzheimer's disease, unspecified; R74.8 Abnormal levels of other serum enzymes; B96.20 Unspecified Escherichia coli [E. coli] as the cause of diseases classified elsewhere; R29.6 Repeated falls; N18.30 Chronic kidney disease, stage 3 unspecified; F02.80 Dementia in other diseases classified elsewhere, unspecified severity, without behavioral disturbance, psychotic disturbance, mood disturbance, and anxiety; E03.9 Hypothyroidism, unspecified; E86.0 Dehydration; Z79.899 Other long term (current) drug therapy; Z79.890 Hormone replacement therapy; Z79.82 Long term (current) use of aspirin; Z88.6 Allergy status to analgesic agent; Z98.42 Cataract extraction status, left eye; Z98.41 Cataract extraction status, right eye
CPT/HCPCS: 36415; 70450; 71045; 71046; 71275; 80053; 81001; 82728; 83605; 83615; 83735; 84145; 84484; 85025; 85379; 85610; 85730; 86140; 87077; 87086; 87186; 87636; 93005; 96361; 96365; 96366; 99285